=== PATIENT | male | born 1980 | race African-American/Black ===

== ENCOUNTER 2017-07-17 22:14 | Inpatient (IN) | payer OTHER ==
[2017-07-17 23:00] VITALS: BMI 29.0
--- NOTE | 2017-07-17 23:27 | HP ---
CIWA Score - CIWA Score Nausea/Vomitin-No Nausea/No Vomiting Muscle Tremors: 1-None Visible, but [place] Anxiety: 4-Mod. Anxious/Guarded Agitation: 4-Moderately Restless Paroxysmal Sweats: 1-Minimal Palms Moist Orientation: 1-Uncertain about Date Tacttile Disturbances: 0-None Auditory Disturbances: 0-None Visual Disturbances: 0-None Headache: 0-None Present CIWA-Ar Total Score: 11 Admission ROS BHS - HPI Chief Complaint: C/O WITHDRAWAL SX'S. SEEKING DETOX TXMENT Allergies/Adverse Reactions: Allergies Allergy/AdvReac Type Severity Reaction Status Date / Time No Known Allergies Allergy Verified 03/06/16 17:01 History of Present Illness: 36 Y.O. MALE WITH ALCOHOLISM ADMITTED FOR DETOX TXMENT. CLIENT STATES HE WAS REFERRED BY HIS ASSISTANT WRESTLING COACH. HE IS KNOWN TO [facility]. DENIES ANY SIGNIFICANT PERIOD OF CLEAN TIME. Exam Limitations: Intoxication - Ebola screening Have you traveled outside of the country in the last 21 days: No (N) Have you had contact with anyone from an Ebola affected area: No Have you been sick,other than usual withdrawal symptoms: No Do you have a fever: No - Review of Systems Constitutional: Chills, Night Sweats EENT: reports: Dental Problems Respiratory: reports: No Symptoms reported Cardiac: reports: No Symptoms Reported GI: reports: Poor Appetite, Poor Fluid Intake : reports: No Symptoms Reported Musculoskeletal: reports: No Symptoms Reported Integumentary: reports: No Symptoms Reported Neuro: reports: Seizure Endocrine: reports: No Symptoms Reported Hematology: reports: No Symptoms Reported Psychiatric: reports: Anxious, Depressed Other Systems: Reviewed and Negative Patient History - Patient Medical History Hx Anemia: No Hx Asthma: No Hx Chronic Obstructive Pulmonary Disease (COPD): No Hx Cancer: No Hx Cardiac Disorders: No Hx Congestive Heart Failure: No Hx Hypertension: No Hx Hypercholesterolemia: Yes (mild elevated, no med) Hx Pacemaker: No HX Cerebrovascular Accident: No Hx Seizures: Yes (Head injury related) Hx Dementia: No Hx Diabetes: No Hx Gastrointestinal Disorders: No Hx Liver Disease: No Hx Genitourinary Disorders: No Hx Sexually Transmitted Disorders: No Hx Renal Disease (ESRD): No Hx Thyroid Disease: No Hx Human Immunodeficiency Virus (HIV): No Hx Hepatitis C: No Hx Depression: No Hx Suicide Attempt: No Hx Bipolar Disorder: No Hx Schizophrenia: Yes Other Medical History: DENIES - Patient Surgical History Past Surgical History: No Hx Neurologic Surgery: No Hx Cataract Extraction: No Hx Cardiac Surgery: No Hx Lung Surgery: No Hx Breast Surgery: No Hx Breast Biopsy: No Hx Abdominal Surgery: No Hx Appendectomy: No Hx Cholecystectomy: No Hx Genitourinary Surgery: No Hx Orthopedic Surgery: No - PPD History Previous Implant?: Yes Documented Results: Negative w/proof Implanted On Prior [facility] Admission?: Yes Date: 03/08/16 PPD to be Administered?: Yes - Smoking Cessation Smoking history: Current every day smoker Have you smoked in the past 12 months: Yes Aproximately how many cigarettes per day: 5 Hx Chewing Tobacco Use: No Initiated information on smoking cessation: Yes 'Breaking Loose' booklet given: 07/17/17 - Substance & Tx. History Hx Alcohol Use: Yes Hx Substance Use: Yes Substance Use Type: Alcohol, Cocaine Hx Substance Use Treatment: Yes ([facility]) - Substances Abused VODKA. Route: Oral Frequency: Daily Amount used: 1 PINT Age of first use: 20 Date of Last Use: 07/17/17 Family Disease History - Family Disease History Family History: Denies Admission Physical Exam S - Vital Signs Vital Signs: Vital Signs - 24 hr 07/17/17 22:58 Temperature 98.1 F Pulse Rate 106 H Respiratory 20 Rate Blood Pressure 172/78 - Physical General Appearance: Yes: Appropriately Dressed, Moderate Distress, Intoxicated, Irritable HEENTM: Yes: EOMI, Normocephalic, Normal Voice, Pharynx Normal Respiratory: Yes: Chest Non-Tender, Lungs Clear, Normal Breath Sounds, No Respiratory Distress, No Accessory Muscle Use Neck: Yes: No masses,lesions,Nodules, Supple, Trachea in good position Breast: Yes: Breast Exam Deferred Cardiology: Yes: Regular Rhythm, Regular Rate, S1, S2 Abdominal: Yes: Normal Bowel Sounds, Non Tender, Soft Genitourinary: Yes: Within Normal Limits Back: Yes: Normal Inspection Musculoskeletal: Yes: Other (UNSTAEDY GAIT DUE TO INTOXICATION) Extremities: Yes: Normal Capillary Refill, Normal Range of Motion, Non-Tender Neurological: Yes: trucksmith II-XII NML intact, Alert, Motor Strength 5/5 Integumentary: Yes: Dry, Warm Lymphatic: Yes: Within Normal Limits - Diagnostic (1) Hyperlipidemia Current Visit: Yes Status: Chronic Qualifiers: Hyperlipidemia type: unspecified Qualified Code(s): E78.5 - Hyperlipidemia, unspecified (2) Nicotine dependence Current Visit: Yes Status: Chronic Qualifiers: Nicotine product type: cigarettes Substance use status: uncomplicated Qualified Code(s): F17.210 - Nicotine dependence, cigarettes, uncomplicated (3) Seizure after head injury Current Visit: Yes Status: Suspected (4) Alcohol dependence with uncomplicated withdrawal Current Visit: Yes Status: Chronic (5) Cocaine dependence, uncomplicated Current Visit: Yes Status: Chronic Cleared for Admission [facility] - Detox or Rehab [facility] Level of Care: Medically Managed Detox Regimen/Protocol: Librium [facility] Breath Alcohol Content Breath Alcohol Content: 0.063 Urine Drug Screen - Results Drug Screen Negative: No Urine Drug Screen Results: SUMMER-Cocaine
[2017-07-17] MEDS ORDERED: NICOTINE POLACRILEX 2 MG GUM BC PRN (23:34)
[2017-07-17] MEDS ORDERED: hydrOXYzine PAMOATE 50 MG CAPSULE (FP) PO PRN (23:34)
[2017-07-17] MEDS ORDERED: MAGNESIUM HYDROX 2400MG/30ML ORAL SUSPENSION 30 ML CUP PO PRN (23:34)
[2017-07-17] MEDS ORDERED: MENTHOL/PHENOL 1 EACH UD MM PRN (23:34)
[2017-07-17] MEDS ORDERED: MAG HYDROX/AL HYDROX/SIMETH 30 ML UNIT-DOSE CUP PO PRN (23:34)
[2017-07-17] MEDS ORDERED: ACETAMINOPHEN 325 MG TABLET (FP) PO PRN (23:34)
[2017-07-17] MEDS ORDERED: MAGNESIUM CITRATE 300 ML BOTTLE PO PRN (23:34)
[2017-07-17] MEDS ORDERED: P-EPHED 60MG/TRIPROLIDI 2.5MG TABLET PO PRN (23:34)
[2017-07-17] MEDS ORDERED: guaiFENesin/D-METHORPHAN HB 10 ML UNIT-DOSE CUPS PO PRN (23:34)
[2017-07-17] MEDS ORDERED: IBUPROFEN 400 MG TABLET (FP) PO PRN (23:34)
[2017-07-17] MEDS ORDERED: LOPERAMIDE HCL 2 MG CAPSULE PO PRN (23:34)
[2017-07-17] MEDS ORDERED: diphenhydrAMINE HCL 50 MG CAPSULE PO PRN (23:34)
[2017-07-17] MEDS ORDERED: chlordiazePOXIDE HCL 25 MG CAPSULE PO PRN (23:34)
[2017-07-18] MEDS: chlordiazePOXIDE HCL 25 MG CAPSULE PO SCH ×5 (01:56→22:26)
[2017-07-18] MEDS: PRENATAL VITAMINS W/ FOLIC ACID TABLET (FP) PO SCH (10:34)
[2017-07-18] MEDS: NICOTINE 14 MG/24 HOURS TOPICAL PATCH TD SCH (10:38)
[2017-07-18 10:40] LABS: MCH 29.8 pg (25.7-33.7); MCHC 33.5 g/dl (32.0-35.9); MEAN CELL VOLUME 89.1 fl (80-96); MEAN PLT VOLUME 8.4 fl (7.5-11.1); PLATELET COUNT 231 K/MM3 (134-434); RDW 13.6 % (11.9-15.9); WHITE BLOOD COUNT 5.8 K/mm3 (4.0-10.0)
[2017-07-18 10:49] LABS: ALBUMIN 3.2 g/dl (3.4-5.0); ANION GAP 3 (8-16); BILIRUBIN,TOTAL 0.6 mg/dL (0.2-1.0); CALCIUM 8.5 mg/dL (8.5-10.1); CO2 31 mmol/L (21-32); GLUCOSE,RANDOM 85 mg/dL (74-106); SGOT/AST 37 U/L (15-37); SGPT/ALT 32 U/L (12-78); TOT PROT 6.3 g/dl (6.4-8.2)
[2017-07-18 10:50] LABS: ALK PHOS 71 U/L (45-117)
--- NOTE | 2017-07-18 15:52 | PN ---
[facility] CIWA - CIWA Score Nausea/Vomitin Muscle Tremors: None Anxiety: 4-Mod. Anxious/Guarded Agitation: 4-Moderately Restless Paroxysmal Sweats: 3 Orientation: 0-Oriented Tacttile Disturbances: 3-Moderate Itch/Numb/Burn Auditory Disturbances: 0-None Visual Disturbances: 0-None Headache: 0-None Present CIWA-Ar Total Score: 16 BHS Progress Note (SOAP) Subjective: Fatigue, Stomach Cramping, Sweating, Body Aches. Objective: PT. A & O X 3, OBSERVED AMBULATING ON UNIT. NO ACUTE DISTRESS. PT. DENIES CHEST PAIN. 07/18/17 15:50 Vital Signs Temperature 98.0 F 07/18/17 10:39 Pulse Rate 70 07/18/17 10:39 Respiratory Rate 16 07/18/17 10:39 Blood Pressure 131/81 07/18/17 10:39 O2 Sat by Pulse Oximetry (%) Laboratory Tests 07/18/17 07/18/17 07/18/17 08:00 08:00 08:00 WBC 5.8 RBC 4.97 Hgb 14.8 Hct 44.3 MCV 89.1 MCH 29.8 MCHC 33.5 RDW 13.6 Plt Count 231 MPV 8.4 Sodium 138 Potassium 4.0 Chloride 104 Carbon Dioxide 31 D Anion Gap 3 L BUN 7 D Creatinine 1.0 Creat Clearance w eGFR > 60 Random Glucose 85 D Calcium 8.5 Total Bilirubin 0.6 D AST 37 D ALT 32 Alkaline Phosphatase 71 Total Protein 6.3 L Albumin 3.2 L RPR Titer Nonreactive LABS NOTED. UA RESULTS PENDING. 07/18/17 15:51 07/18/17 15:51 Assessment: 07/18/17 15:51 WITHDRAWAL SYMPTOMS. Plan: CONTINUE DETOX.
[2017-07-18] MEDS: THIAMINE HCL 100 MG TABLET (FP) PO SCH (22:26)
[2017-07-18] MEDS: AMMONIUM LACTATE 12% LOTION 225 GM BOTTLE TP SCH (22:27)
[2017-07-18 22:55] LABS: URINE APPEARANCE CLEAR; URINE BILIRUBIN NEGATIVE (NEGATIVE); URINE BLOOD NEGATIVE (NEGATIVE); URINE COLOR YELLOW; URINE GLUCOSE (UA) NEGATIVE (NEGATIVE); URINE KETONE NEGATIVE (NEGATIVE); URINE LEUK ESTERASE NEGATIVE (NEGATIVE); URINE NITRITE NEGATIVE (NEGATIVE); URINE PROTEIN NEGATIVE (NEGATIVE); URINE UROBILINOGEN NEGATIVE mg/dL (0.2-1.0)
[2017-07-19] MEDS: chlordiazePOXIDE HCL 25 MG CAPSULE PO SCH ×3 (06:06→17:30)
--- NOTE | 2017-07-19 08:23 | CONSULT ---
[facility] Psychiatric Consult - Data Date of interview: 07/19/17 Admission source: Self-referred Identifying data: Mr Loera is a 36 years old single Black, unemployed with no source of income, homeless seeking detox treatment for alcohol Medical History: Patient denies having medical issues. However on record he reported history of Hyperlipidemia, Lyme Arthritis and Seizure Disorder due to head injury. When confronted with that information, he claims it was not him Psychiatric History: Patient denies history of previous psychiatric treatmen. However, during an admission to inpt rehab in this facility in March 2016, he reported history of Schizoaffective Disorder diagnosed approximately 10 years ago and has had approximately 5 previous psychiatric hospitalizations. Most recently was in November 2015 at [facility] . He said that he was in half-way and was seeing a psychiatrist there and was prescribed Abilify 10 mg po daily, Elavil 25 mg po HS and Remeron 30 mg po HS. Reported that he was released from half-way 10 days ago prior to that admission in March 2016 and was given scripts for 30 day supply of theses medications. At the time he reported hearing voices but claimed that they were under controlled since he was on medication. During that admission, he was prescribed Abilify 10 mg po daily, remeron 30 mg po HS and Cogentin 1 mg po BID. He was admitted on 03/06/16 and left AMA on 03/11/16 after he was confronted for smoking on the unit Physical/Sexual Abuse/Trauma History: Denies history of physical, sexual abuse aswell as well as DV relationship Additional Comment: Denies history of previous arrest. However he reported history of multiple arrests including 2 felony convictions on March 2016 and said that he was on parole till 2018 Mental Status Exam - Mental Status Exam Alert and Oriented to: Time, Place, Person Cognitive Function: Fair Patient Appearance: Well Groomed Mood: Hopeful, Euthymic Affect: Appropriate Patient Behavior: Uncooperative Speech Pattern: Clear Voice Loudness: Normal Thought Process: Intact, Goal Oriented Thought Disorder: Not Present Hallucinations: Denies Suicidal Ideation: Denies Insight/Judgement: Poor Sleep: Fair Appetite: Good Muscle strength/Tone: Normal Gait/Station: Normal Psychiatric Findings - Problem List ([place] 1, 2,3) (1) Schizoaffective disorder Current Visit: No Status: Acute (2) Alcohol dependence with uncomplicated withdrawal Current Visit: Yes Status: Chronic (3) Nicotine dependence Current Visit: Yes Status: Chronic Qualifiers: Nicotine product type: cigarettes Substance use status: uncomplicated Qualified Code(s): F17.210 - Nicotine dependence, cigarettes, uncomplicated (4) Seizure after head injury Current Visit: Yes Status: Suspected (5) Lyme arthritis Current Visit: No Status: Chronic - Initial Treatment Plan Initial Treatment Plan: Continue inpatient detoxification while monitoring for signs or evidence of psychiatric decompensation
[2017-07-19] MEDS: PRENATAL VITAMINS W/ FOLIC ACID TABLET (FP) PO SCH (10:12)
[2017-07-19] MEDS: AMMONIUM LACTATE 12% LOTION 225 GM BOTTLE TP SCH ×2 (10:13→22:45)
[2017-07-19] MEDS: NICOTINE 14 MG/24 HOURS TOPICAL PATCH TD SCH (10:13)
[2017-07-19] MEDS: GABAPENTIN 100 MG CAPSULE (FP) PO SCH ×2 (15:10→22:11)
--- NOTE | 2017-07-19 17:58 | PN ---
S CIWA - CIWA Score Nausea/Vomitin Muscle Tremors: 4-Moderate,w/Arms Extend Anxiety: 4-Mod. Anxious/Guarded Agitation: 3 Paroxysmal Sweats: 3 Orientation: 0-Oriented Tacttile Disturbances: 0-None Auditory Disturbances: 0-None Visual Disturbances: 0-None Headache: 0-None Present CIWA-Ar Total Score: 17 BHS Progress Note (SOAP) Subjective: Body aches, tremor, chills, interrupted sleep Objective: 07/19/17 17:57 Last Vital Signs Temp Pulse Resp BP Pulse Ox 97.1 F L 63 20 131/71 07/19/17 13:46 07/19/17 13:46 07/19/17 13:46 07/19/17 13:46 Laboratory Tests 07/18/17 07/18/17 07/18/17 08:00 08:00 08:00 WBC 5.8 RBC 4.97 Hgb 14.8 Hct 44.3 MCV 89.1 MCH 29.8 MCHC 33.5 RDW 13.6 Plt Count 231 MPV 8.4 Sodium 138 Potassium 4.0 Chloride 104 Carbon Dioxide 31 D Anion Gap 3 L BUN 7 D Creatinine 1.0 Creat Clearance w eGFR > 60 Random Glucose 85 D Calcium 8.5 Total Bilirubin 0.6 D AST 37 D ALT 32 Alkaline Phosphatase 71 Total Protein 6.3 L Albumin 3.2 L Urine Color Urine Appearance Urine pH Ur Specific [place] Urine Protein Urine Glucose (UA) Urine Ketones Urine Blood Urine Nitrite Urine Bilirubin Urine Urobilinogen RPR Titer Nonreactive 07/18/17 22:45 WBC RBC Hgb Hct MCV MCH MCHC RDW Plt Count MPV Sodium Potassium Chloride Carbon Dioxide Anion Gap BUN Creatinine Creat Clearance w eGFR Random Glucose Calcium Total Bilirubin AST ALT Alkaline Phosphatase Total Protein Albumin Urine Color Yellow Urine Appearance Clear Urine pH 5.0 D Ur Specific [place] 1.025 Urine Protein Negative Urine Glucose (UA) Negative Urine Ketones Negative Urine Blood Negative Urine Nitrite Negative Urine Bilirubin Negative Urine Urobilinogen Negative RPR Titer Labs noted Assessment: 07/19/17 17:58 Withdrawal symptoms Plan: Continue detox
[2017-07-19] MEDS: THIAMINE HCL 100 MG TABLET (FP) PO SCH (22:10)
[2017-07-19] MEDS: chlordiazePOXIDE 5 MG CAPSULE PO SCH (22:11)
[2017-07-19] MEDS: NAPROXEN 500 MG TABLET (FP) PO SCH (22:11)
[2017-07-20] MEDS: chlordiazePOXIDE 5 MG CAPSULE PO SCH ×3 (07:00→17:25)
[2017-07-20] MEDS: GABAPENTIN 100 MG CAPSULE (FP) PO SCH ×3 (07:00→22:01)
[2017-07-20] MEDS ORDERED: PHENYTOIN NA EXTENDED 100 MG CAPSULE (FP) PO ONE (09:15)
[2017-07-20] MEDS: PRENATAL VITAMINS W/ FOLIC ACID TABLET (FP) PO SCH (10:05)
[2017-07-20] MEDS: NAPROXEN 500 MG TABLET (FP) PO SCH ×2 (10:06→22:01)
[2017-07-20] MEDS: NICOTINE 14 MG/24 HOURS TOPICAL PATCH TD SCH (10:06)
[2017-07-20] MEDS: AMMONIUM LACTATE 12% LOTION 225 GM BOTTLE TP SCH ×2 (10:06→22:03)
--- NOTE | 2017-07-20 12:21 | PN ---
[facility] Progress Note (SOAP) Subjective: Pt. does not remember the names of his recent meds. List from Outside pharmacy reveals that pt. was recently prescribed suboxone & remeron Objective: 07/20/17 12:21 Vital Signs - 8 hr 07/20/17 07/20/17 07/20/17 06:07 07:00 09:38 Temperature 97.4 F L 96.7 F L Pulse Rate 50 L 60 Respiratory 18 18 18 Rate Blood Pressure 109/64 127/82 Laboratory Tests 07/18/17 07/18/17 07/18/17 08:00 08:00 08:00 WBC 5.8 RBC 4.97 Hgb 14.8 Hct 44.3 MCV 89.1 MCH 29.8 MCHC 33.5 RDW 13.6 Plt Count 231 MPV 8.4 Sodium 138 Potassium 4.0 Chloride 104 Carbon Dioxide 31 D Anion Gap 3 L BUN 7 D Creatinine 1.0 Creat Clearance w eGFR > 60 Random Glucose 85 D Calcium 8.5 Total Bilirubin 0.6 D AST 37 D ALT 32 Alkaline Phosphatase 71 Total Protein 6.3 L Albumin 3.2 L Urine Color Urine Appearance Urine pH Ur Specific [place] Urine Protein Urine Glucose (UA) Urine Ketones Urine Blood Urine Nitrite Urine Bilirubin Urine Urobilinogen RPR Titer Nonreactive 07/18/17 22:45 WBC RBC Hgb Hct MCV MCH MCHC RDW Plt Count MPV Sodium Potassium Chloride Carbon Dioxide Anion Gap BUN Creatinine Creat Clearance w eGFR Random Glucose Calcium Total Bilirubin AST ALT Alkaline Phosphatase Total Protein Albumin Urine Color Yellow Urine Appearance Clear Urine pH 5.0 D Ur Specific [place] 1.025 Urine Protein Negative Urine Glucose (UA) Negative Urine Ketones Negative Urine Blood Negative Urine Nitrite Negative Urine Bilirubin Negative Urine Urobilinogen Negative RPR Titer labs noted Assessment: 07/20/17 12:22 Withdrawal sx. Plan: Continue detox
[2017-07-20] MEDS: BUPRENORPHINE/NALOXONE 8 MG/2 MG FILM PACKET SL SCH ×2 (13:57→22:03)
[2017-07-20] MEDS: PHENYTOIN NA EXTENDED 100 MG CAPSULE (FP) PO SCH ×2 (13:57→22:02)
--- NOTE | 2017-07-20 17:02 | EKG ---
Test Reason : Blood Pressure : / mmHG Vent. Rate : 076 BPM Atrial Rate : 076 BPM P-R Int : 170 ms QRS Dur : 120 ms QT Int : 416 ms P-R-T Axes : 060 078 048 degrees QTc Int : 468 ms NORMAL SINUS RHYTHM NON-SPECIFIC INTRA-VENTRICULAR CONDUCTION DELAY BORDERLINE ECG NO PREVIOUS ECGS AVAILABLE Confirmed by TRINO ANDRADE, LIYA ([id number]) on 07/20/2017 5:02:00 PM Referred By: Confirmed By:LIYA JAMESON MD
[2017-07-20] MEDS ORDERED: OLANZapine 10 MG TABLET PO SCH (22:00)
[2017-07-20] MEDS ORDERED: MIRTAZAPINE 15 MG TABLET (FP) PO SCH (22:00)
[2017-07-20] MEDS: THIAMINE HCL 100 MG TABLET (FP) PO SCH (22:03)
[2017-07-20] MEDS: chlordiazePOXIDE HCL 10 MG CAPSULE PO SCH (22:05)
[2017-07-21] MEDS: PHENYTOIN NA EXTENDED 100 MG CAPSULE (FP) PO SCH (06:15)
[2017-07-21] MEDS: chlordiazePOXIDE HCL 10 MG CAPSULE PO SCH ×2 (06:15→11:02)
[2017-07-21] MEDS: GABAPENTIN 100 MG CAPSULE (FP) PO SCH (06:15)
[2017-07-21 09:25] VITALS: BP 135/82; PULSE 69; TEMP 96.8
[2017-07-21] MEDS: BUPRENORPHINE/NALOXONE 8 MG/2 MG FILM PACKET SL SCH (09:26)
[2017-07-21] MEDS: NAPROXEN 500 MG TABLET (FP) PO SCH (09:26)
[2017-07-21] MEDS: PRENATAL VITAMINS W/ FOLIC ACID TABLET (FP) PO SCH (09:26)
--- NOTE | 2017-07-21 09:37 | DS ---
[facility] Detox Discharge Summary Admission Date: 07/17/17 Discharge Date: 07/21/17 - History Present History: Alcohol Dependence, Cocaine Dependence Additional Comments: DETOX COMPLETED. ULISES Alexandre X 3. NAD. PT REMINDED TO FOLLOW UP WITH HER PMD, DR. BRADLEY SINGLETARY FOR MEDICAL MANAGEMENT. Pertinent Past History: HX HYPERLIPIDEMIA HX LYME ARTHRITIS - Physical Exam Results Vital Signs: Vital Signs Temperature 96.8 F L 07/21/17 09:24 Pulse Rate 69 07/21/17 09:24 Respiratory Rate 18 07/21/17 09:24 Blood Pressure 135/82 07/21/17 09:24 O2 Sat by Pulse Oximetry (%) Pertinent Admission Physical Exam Findings: WITHDRAWAL SX Laboratory Last Values WBC 5.8 K/mm3 (4.0-10.0) 07/18/17 08:00 RBC 4.97 M/mm3 (4.00-5.60) 07/18/17 08:00 Hgb 14.8 GM/dL (11.7-16.9) 07/18/17 08:00 Hct 44.3 % (35.4-49) 07/18/17 08:00 MCV 89.1 fl (80-96) 07/18/17 08:00 MCH 29.8 pg (25.7-33.7) 07/18/17 08:00 MCHC 33.5 g/dl (32.0-35.9) 07/18/17 08:00 RDW 13.6 % (11.9-15.9) 07/18/17 08:00 Plt Count 231 K/MM3 (134-434) 07/18/17 08:00 MPV 8.4 fl (7.5-11.1) 07/18/17 08:00 Sodium 138 mmol/L (136-145) 07/18/17 08:00 Potassium 4.0 mmol/L (3.5-5.1) 07/18/17 08:00 Chloride 104 mmol/L (98-107) 07/18/17 08:00 Carbon Dioxide 31 mmol/L (21-32) D 07/18/17 08:00 Anion Gap 3 (8-16) L 07/18/17 08:00 BUN 7 mg/dL (7-18) D 07/18/17 08:00 Creatinine 1.0 mg/dL (0.7-1.3) 07/18/17 08:00 Creat Clearance w eGFR > 60 (>60) 07/18/17 08:00 Random Glucose 85 mg/dL (74-106) D 07/18/17 08:00 Calcium 8.5 mg/dL (8.5-10.1) 07/18/17 08:00 Total Bilirubin 0.6 mg/dL (0.2-1.0) D 07/18/17 08:00 AST 37 U/L (15-37) D 07/18/17 08:00 ALT 32 U/L (12-78) 07/18/17 08:00 Alkaline Phosphatase 71 U/L (45-117) 07/18/17 08:00 Total Protein 6.3 g/dl (6.4-8.2) L 07/18/17 08:00 Albumin 3.2 g/dl (3.4-5.0) L 07/18/17 08:00 Urine Color Yellow 07/18/17 22:45 Urine Appearance Clear 07/18/17 22:45 Urine pH 5.0 (5.0-8.0) D 07/18/17 22:45 Ur Specific [place] 1.025 (1.005-1.025) 07/18/17 22:45 Urine Protein Negative (NEGATIVE) 07/18/17 22:45 Urine Glucose (UA) Negative (NEGATIVE) 07/18/17 22:45 Urine Ketones Negative (NEGATIVE) 07/18/17 22:45 Urine Blood Negative (NEGATIVE) 07/18/17 22:45 Urine Nitrite Negative (NEGATIVE) 07/18/17 22:45 Urine Bilirubin Negative (NEGATIVE) 07/18/17 22:45 Urine Urobilinogen Negative mg/dL (0.2-1.0) 07/18/17 22:45 RPR Titer Nonreactive (NONREACTIVE) 07/18/17 08:00 - Treatment Hospital Course: Detox Protocol Followed, Detoxed Safely, Responded well, Discharged Condition Good, Rehab Referral Accepted Patient has Accepted a Rehab Referral to: [facility] - Medication Discharge Medications: Ambulatory Orders Aripiprazole [Abilify -] 10 mg PO DAILY 03/06/16 Mirtazapine [Remeron -] 45 mg PO HS 03/06/16 Naproxen [Naprosyn -] 500 mg PO BID PRN 03/06/16 Phenytoin Na Extended [Dilantin -] 100 mg PO TID 03/06/16 Olanzapine [Zyprexa -] 10 mg PO HS 07/18/17 Buprenorphine/Naloxone [Suboxone 8Mg/2Mg Sl Film -] 1 each SL DAILY 07/20/17 - Diagnosis (1) Alcohol dependence with uncomplicated withdrawal Current Visit: Yes Status: Acute (2) Cocaine dependence, uncomplicated Current Visit: Yes Status: Acute (3) Hyperlipidemia Current Visit: Yes Status: Suspected Qualifiers: Hyperlipidemia type: unspecified Qualified Code(s): E78.5 - Hyperlipidemia, unspecified (4) Nicotine dependence Current Visit: Yes Status: Acute Qualifiers: Nicotine product type: cigarettes Substance use status: in withdrawal Qualified Code(s): F17.213 - Nicotine dependence, cigarettes, with withdrawal (5) Seizure after head injury Current Visit: Yes Status: Suspected (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 (7) Opioid dependence on agonist therapy Current Visit: Yes Status: Chronic - AMA Did Patient Leave Against Medical Advice: No
[2017-07-21] MEDS: AMMONIUM LACTATE 12% LOTION 225 GM BOTTLE TP SCH (11:02)
[2017-07-21] MEDS: NICOTINE 14 MG/24 HOURS TOPICAL PATCH TD SCH (11:02)
== END 2017-07-21 13:51 | disposition other institution (70) | DRG 773 ==
LOC: YASAS 22:14 → Y3N 23:28
PROVIDERS: ADMIT Internal Medicine; ATTEND Internal Medicine
PROC: HZ2ZZZZ Detoxification Services for Substance Abuse Treatment (ICD-10-PCS; principal; 2017-07-17)
DX: F11.20 Opioid dependence, uncomplicated (principal); F10.230 Alcohol dependence with withdrawal, uncomplicated; F14.20 Cocaine dependence, uncomplicated; F17.213 Nicotine dependence, cigarettes, with withdrawal; F25.9 Schizoaffective disorder, unspecified; E78.00 Pure hypercholesterolemia, unspecified; R56.1 Post traumatic seizures; A69.23 Arthritis due to Lyme disease
CPT/HCPCS: 36415; 80053; 81003; 85027; 86593; 93005; 93010

== ENCOUNTER 2017-07-21 13:05 | Inpatient (IN) | payer OTHER ==
[2017-07-21] MEDS ORDERED: NICOTINE POLACRILEX 2 MG GUM BUC PRN (14:26)
[2017-07-21] MEDS ORDERED: P-EPHED 60MG/TRIPROLIDI 2.5MG TABLET PO PRN (14:26)
[2017-07-21] MEDS ORDERED: LOPERAMIDE HCL 2 MG CAPSULE PO PRN (14:26)
[2017-07-21] MEDS ORDERED: MENTHOL/PHENOL 1 EACH UD MM PRN (14:26)
[2017-07-21] MEDS ORDERED: ACETAMINOPHEN 325 MG TABLET (FP) PO PRN (14:26)
[2017-07-21] MEDS ORDERED: MAGNESIUM CITRATE 300 ML BOTTLE PO PRN (14:26)
[2017-07-21] MEDS ORDERED: MAGNESIUM HYDROX 2400MG/30ML ORAL SUSPENSION 30 ML CUP PO PRN (14:26)
[2017-07-21] MEDS ORDERED: guaiFENesin/D-METHORPHAN HB 10 ML UNIT-DOSE CUPS PO PRN (14:26)
[2017-07-21] MEDS ORDERED: MAG HYDROX/AL HYDROX/SIMETH 30 ML UNIT-DOSE CUP PO PRN (14:26)
[2017-07-21] MEDS ORDERED: PHENYTOIN NA EXTENDED 100 MG CAPSULE (FP) PO ONE (14:29)
--- NOTE | 2017-07-21 14:34 | HP ---
BRENDEN ANDRADE Rehab Assess/Revision - Admission History Admitted to Rehab from: [facility] Date of Admission to Rehab: 07/21/17 - Findings Detox History & Physical reviewed: Yes Concur with findings: Yes Comments/Additional Findings: ADMIT TO REHAB FOR AFTER CARE Inpatient Rehab Admission - Initial Determination Are CD services needed?: Yes Free of communicable disease: Yes Not in need of hospitalization: No - Rehab Admission Criteria Previous failed treatment: Yes Poor recovery environment: Yes Comorbidities: Yes Lacks judgement: Yes Patient is meeting Inpatient Rehab admission criteria:: Yes
[2017-07-21] MEDS: NICOTINE 14 MG/24 HOURS TOPICAL PATCH TD SCH (14:49)
[2017-07-21] MEDS: OLANZapine 10 MG TABLET PO SCH (21:29)
[2017-07-21] MEDS: THIAMINE HCL 100 MG TABLET (FP) PO SCH (21:30)
[2017-07-21] MEDS: BUPRENORPHINE/NALOXONE 8 MG/2 MG FILM PACKET SL SCH (21:30)
[2017-07-21] MEDS: PHENYTOIN NA EXTENDED 100 MG CAPSULE (FP) PO SCH (21:30)
[2017-07-21] MEDS: MIRTAZAPINE 15 MG TABLET (FP) PO SCH (21:30)
[2017-07-22] MEDS: PHENYTOIN NA EXTENDED 100 MG CAPSULE (FP) PO SCH ×3 (06:48→21:38)
[2017-07-22] MEDS: PRENATAL VITAMINS W/ FOLIC ACID TABLET (FP) PO SCH (10:21)
[2017-07-22] MEDS: BUPRENORPHINE/NALOXONE 8 MG/2 MG FILM PACKET SL SCH ×2 (10:22→21:38)
[2017-07-22] MEDS: NICOTINE 14 MG/24 HOURS TOPICAL PATCH TD SCH (10:22)
--- NOTE | 2017-07-22 11:30 | HP ---
Psychiatrist Admission - Data Date of interview: 07/22/17 Admission source: 3N Identifying data: THis is the second inpatient rehabilitation admission for thsi 36 year old single AA male,no children, unemployed and supported by [facility]. Medical History: Hyperlipidemia, Lyme Arthritis and Seizure Disorder due to head injury. Psychiatric History: Patient is poor historian, he admits was diagnosed as Schizoaffective disorder, diagnosed approximately 10 years ago and has had several 6 previous psychiatric hospitalizations with most recent in 2016 at [facility], reports sees the psychiatrist in one of the [facility] and currently on Zyprexa and Remeron. Physical/Sexual Abuse/Trauma History: Denies Vital Signs: Vital Signs - 24 hr 07/21/17 07/22/17 07/22/17 14:40 00:35 03:28 Temperature Pulse Rate 66 Respiratory 18 18 18 Rate Blood Pressure 145/73 07/22/17 06:46 Temperature 97.7 F Pulse Rate 57 L Respiratory 18 Rate Blood Pressure 152/81 Allergies/Adverse Reactions: Allergies Allergy/AdvReac Type Severity Reaction Status Date / Time No Known Allergies Allergy Verified 07/21/17 14:44 Date of last physical exam: 07/17/17 Concur with the findings of this exam: Yes - Substance Abuse/Tx History Hx Alcohol Use: Yes Hx Substance Use: Yes Substance Use Type: Cocaine Hx Substance Use Treatment: Yes - Admission Criteria Previous failed treatment: Yes Poor recovery environment: Yes Comorbidities: Yes Lacks judgement: Yes Mental Status Exam - Mental Status Exam Alert and Oriented to: Place, Person Cognitive Function: Impaired Patient Appearance: Well Groomed Mood: Angry, Irritable Affect: Appropriate Patient Behavior: Appropriate, Cooperative Voice Loudness: Normal Thought Process: Goal Oriented Thought Disorder: Not Present Hallucinations: Denies Suicidal Ideation: Denies Homicidal Ideation: Denies Insight/Judgement: Fair Sleep: Fair Appetite: Fair Muscle strength/Tone: Normal Gait/Station: Normal Psychiatric Findings - Problem List ([place] 1, 2,3) (1) Alcohol dependence Current Visit: No Status: Acute (2) Nicotine dependence Current Visit: No Status: Acute Qualifiers: Nicotine product type: cigarettes Substance use status: in withdrawal Qualified Code(s): F17.213 - Nicotine dependence, cigarettes, with withdrawal (3) Schizoaffective disorder Current Visit: No Status: Acute (4) Cocaine dependence Current Visit: No Status: Chronic Qualifiers: Substance use status: uncomplicated Qualified Code(s): F14.20 - Cocaine dependence, uncomplicated - Initial Treatment Plan Initial Treatment Plan: will continue his meidcations, monitor progres as needed
[2017-07-22] MEDS: THIAMINE HCL 100 MG TABLET (FP) PO SCH (21:38)
[2017-07-22] MEDS: MIRTAZAPINE 15 MG TABLET (FP) PO SCH (21:38)
[2017-07-22] MEDS: OLANZapine 10 MG TABLET PO SCH (21:38)
[2017-07-23] MEDS: BUPRENORPHINE/NALOXONE 8 MG/2 MG FILM PACKET SL SCH ×2 (10:30→21:34)
[2017-07-23] MEDS: NICOTINE 14 MG/24 HOURS TOPICAL PATCH TD SCH (10:30)
[2017-07-23] MEDS: PRENATAL VITAMINS W/ FOLIC ACID TABLET (FP) PO SCH (10:30)
[2017-07-23] MEDS: PHENYTOIN NA EXTENDED 100 MG CAPSULE (FP) PO SCH ×4 (10:31→21:33)
[2017-07-23] MEDS: THIAMINE HCL 100 MG TABLET (FP) PO SCH (21:33)
[2017-07-23] MEDS: MIRTAZAPINE 15 MG TABLET (FP) PO SCH (21:33)
[2017-07-23] MEDS: OLANZapine 10 MG TABLET PO SCH (21:33)
[2017-07-24] MEDS: PHENYTOIN NA EXTENDED 100 MG CAPSULE (FP) PO SCH ×3 (10:00→21:31)
[2017-07-24] MEDS: NICOTINE 14 MG/24 HOURS TOPICAL PATCH TD SCH (10:21)
[2017-07-24] MEDS: PRENATAL VITAMINS W/ FOLIC ACID TABLET (FP) PO SCH (10:21)
[2017-07-24] MEDS: BUPRENORPHINE/NALOXONE 8 MG/2 MG FILM PACKET SL SCH ×2 (10:21→21:32)
[2017-07-24] MEDS ORDERED: PHENYTOIN NA EXTENDED 100 MG CAPSULE (FP) PO ONE (14:18)
[2017-07-24] MEDS: THIAMINE HCL 100 MG TABLET (FP) PO SCH (21:31)
[2017-07-24] MEDS: MIRTAZAPINE 15 MG TABLET (FP) PO SCH (21:31)
[2017-07-24] MEDS: OLANZapine 10 MG TABLET PO SCH (21:31)
[2017-07-24] MEDS: IBUPROFEN 400 MG TABLET (FP) PO PRN (23:37)
[2017-07-25] MEDS: PHENYTOIN NA EXTENDED 100 MG CAPSULE (FP) PO SCH ×3 (06:09→21:35)
[2017-07-25] MEDS: PRENATAL VITAMINS W/ FOLIC ACID TABLET (FP) PO SCH (10:30)
[2017-07-25] MEDS: BUPRENORPHINE/NALOXONE 8 MG/2 MG FILM PACKET SL SCH ×2 (10:32→21:36)
[2017-07-25] MEDS: NICOTINE 14 MG/24 HOURS TOPICAL PATCH TD SCH (14:46)
[2017-07-25] MEDS: AMMONIUM LACTATE 12% LOTION 225 GM BOTTLE TP PRN ×2 (14:47→21:37)
[2017-07-25] MEDS: OLANZapine 10 MG TABLET PO SCH (21:35)
[2017-07-25] MEDS: MIRTAZAPINE 15 MG TABLET (FP) PO SCH (21:35)
[2017-07-25] MEDS: THIAMINE HCL 100 MG TABLET (FP) PO SCH (21:36)
[2017-07-26] MEDS: PHENYTOIN NA EXTENDED 100 MG CAPSULE (FP) PO SCH ×3 (07:47→21:28)
[2017-07-26] MEDS: NICOTINE 14 MG/24 HOURS TOPICAL PATCH TD SCH (10:05)
[2017-07-26] MEDS: PRENATAL VITAMINS W/ FOLIC ACID TABLET (FP) PO SCH (10:06)
[2017-07-26] MEDS: BUPRENORPHINE/NALOXONE 8 MG/2 MG FILM PACKET SL SCH ×2 (10:06→21:29)
[2017-07-26] MEDS: THIAMINE HCL 100 MG TABLET (FP) PO SCH (21:28)
[2017-07-26] MEDS: diphenhydrAMINE HCL 50 MG CAPSULE PO PRN (21:28)
[2017-07-26] MEDS: MIRTAZAPINE 15 MG TABLET (FP) PO SCH (21:28)
[2017-07-26] MEDS: OLANZapine 10 MG TABLET PO SCH (21:28)
[2017-07-26] MEDS: AMMONIUM LACTATE 12% LOTION 225 GM BOTTLE TP PRN (21:29)
[2017-07-27] MEDS: PHENYTOIN NA EXTENDED 100 MG CAPSULE (FP) PO SCH ×3 (07:02→21:15)
[2017-07-27] MEDS: PRENATAL VITAMINS W/ FOLIC ACID TABLET (FP) PO SCH (10:46)
[2017-07-27] MEDS: BUPRENORPHINE/NALOXONE 8 MG/2 MG FILM PACKET SL SCH ×2 (10:47→21:16)
[2017-07-27] MEDS: NICOTINE 14 MG/24 HOURS TOPICAL PATCH TD SCH (10:47)
[2017-07-27] MEDS: MIRTAZAPINE 15 MG TABLET (FP) PO SCH (21:15)
[2017-07-27] MEDS: OLANZapine 10 MG TABLET PO SCH (21:15)
[2017-07-27] MEDS: THIAMINE HCL 100 MG TABLET (FP) PO SCH (21:16)
[2017-07-28] MEDS: PHENYTOIN NA EXTENDED 100 MG CAPSULE (FP) PO SCH ×3 (06:38→21:49)
[2017-07-28] MEDS: BUPRENORPHINE/NALOXONE 8 MG/2 MG FILM PACKET SL SCH ×2 (10:14→21:49)
[2017-07-28] MEDS: NICOTINE 14 MG/24 HOURS TOPICAL PATCH TD SCH (10:14)
[2017-07-28] MEDS: PRENATAL VITAMINS W/ FOLIC ACID TABLET (FP) PO SCH (10:14)
[2017-07-28] MEDS: THIAMINE HCL 100 MG TABLET (FP) PO SCH (21:48)
[2017-07-28] MEDS: MIRTAZAPINE 15 MG TABLET (FP) PO SCH (21:49)
[2017-07-28] MEDS: OLANZapine 10 MG TABLET PO SCH (21:49)
[2017-07-29] MEDS: PHENYTOIN NA EXTENDED 100 MG CAPSULE (FP) PO SCH ×3 (06:45→21:37)
[2017-07-29] MEDS: PRENATAL VITAMINS W/ FOLIC ACID TABLET (FP) PO SCH (09:56)
[2017-07-29] MEDS: NICOTINE 14 MG/24 HOURS TOPICAL PATCH TD SCH (09:56)
[2017-07-29] MEDS: BUPRENORPHINE/NALOXONE 8 MG/2 MG FILM PACKET SL SCH ×2 (09:57→21:41)
--- NOTE | 2017-07-29 10:31 | PN ---
Psychiatric Progress Note Vital Signs: Vital Signs Period Temp Pulse Resp BP Sys/Stephens Pulse Ox Last 24 Hr 96.9 F 67 16-20 140/75 Date of Session: 07/29/17 Chief Complaint:: progress update. HPI: Patient is addressing alcohol, nicotine, cocaine dependence comorbid Schizoaffective disorder. ROS: WNL Current Medications: Active Medications Generic Name Dose Route Start Last Admin Trade Name Freq PRN Reason Stop Dose Admin Acetaminophen 650 mg 07/21/17 14:26 Tylenol - PO Q4H PRN FEVER OR PAIN Al Hydroxide/Mg Hydroxide 30 ml 07/21/17 14:26 Mylanta Oral Suspension - PO Q6H PRN DYSPEPSIA Buprenorphine/Naloxone 1 each 07/29/17 10:00 07/29/17 09:57 Suboxone 8mg/2mg Sl Film - SL 08/05/17 09:59 1 each BID CHELSEA Administration Diphenhydramine HCl 50 mg 07/21/17 14:26 07/26/17 21:28 Benadryl - PO 50 mg HSMR1 PRN Administration FOR ITCHING Eucalyptus/Menthol/Phenol/Sorbitol 1 each 07/21/17 14:26 Cepastat Lozenge - MM Q4H PRN SORE THROAT Guaifenesin 10 ml 07/21/17 14:26 Robitussin Dm - PO Q6H PRN COUGH Ibuprofen 400 mg 07/21/17 14:26 07/24/17 23:37 Motrin - PO 400 mg Q6H PRN Administration PAIN Lactic Acid 1 applic 07/24/17 14:19 07/26/17 21:29 Lac-Hydrin 12 TP 1 applic BID PRN Administration DRY SKIN Loperamide HCl 4 mg 07/21/17 14:26 Imodium - PO Q6H PRN DIARRHEA Magnesium Hydroxide 30 ml 07/21/17 14:26 Milk Of Magnesia - PO DAILY PRN CONSTIPATION Mirtazapine 45 mg 07/21/17 22:00 07/28/17 21:49 Remeron - PO 45 mg HS CHELSEA Administration Nicotine 14 mg 07/21/17 14:30 07/29/17 09:56 Nicoderm Patch - TD 14 mg DAILY CHELSEA Administration Nicotine Polacrilex 2 mg 07/21/17 14:26 Nicorette Gum - BUC Q2H PRN NICOTINE REPLACEMENT RX Olanzapine 10 mg 07/21/17 22:00 07/28/17 21:49 Zyprexa - PO 10 mg HS CHELSEA Administration Phenytoin Sodium 100 mg 07/23/17 15:00 07/29/17 06:45 Dilantin - PO 100 mg TID CHELSEA Administration Multivit/Folic Acid/Iron 1 tab 07/22/17 10:00 07/29/17 09:56 Vitamins (Sjr) - PO 1 tab DAILY CHELSEA Administration Pseudoephedrine/Triprolidine 1 combo 07/21/17 14:26 Actifed - PO TID PRN NASAL CONGESTION Thiamine HCl 100 mg 07/21/17 22:00 07/28/17 21:48 Vitamin B1 - PO 100 mg HS CHELSEA Administration Medication(s) Change(s): increase Zyprexa 15 mg po hs. Current Side Effect: No Lab tests ordered: No Lab tests reviewed: Yes Provider note:: Was asked by the staff to re-evaluate the patient due to the recent incident on the unit when patient was loud during breakfast time yelling that the milk is spoiled as other the patients tried to convince him that the milk was not spoiled because they were using it in their tea also was reported by the staff this morning was cofused asking where his room. Patient was seen today, he reports he just feels fatiqued in the mornings and some days needs a few minutes rest in his room, other than that he has no complaints. He is alert , cooperative and calm, he has a good eye contact and he is polite during evaluation. He reports that his sleeping habits just started to imrpove, he has no side-effects from medications, he is fully aware of his medications name and dosage. Discussed indications and properties of his current medications, recommended to add 5 mg of Zyprexa additionally to his 10 mg po at HS, patient agreed with careplan. Counseling and supportive therapy provided, patient is fully ambulatory and not in acute distress. Will continue to monitor rpogress. Total face to face time:: 35 Mental Status Exam - Mental Status Exam Alert and Oriented to: Time, Place, Person Cognitive Function: Grossly Intact Patient Appearance: Well Groomed Affect: Appropriate, Mood Congruent, Normal Range Patient Behavior: Appropriate, Cooperative Speech Pattern: Clear, Appropriate Voice Loudness: Normal Thought Process: Intact, Goal Oriented Thought Disorder: Not Present Hallucinations: Denies Suicidal Ideation: Denies Homicidal Ideation: Denies Insight/Judgement: Fair Sleep: Fair Appetite: Fair Muscle strength/Tone: Normal Gait/Station: Normal Psychiatric Treatment Plan - Problem List (1) Alcohol dependence Current Visit: No (2) Nicotine dependence Current Visit: No Qualifiers: Nicotine product type: cigarettes Substance use status: in withdrawal Qualified Code(s): F17.213 - Nicotine dependence, cigarettes, with withdrawal (3) Schizoaffective disorder Current Visit: No (4) Cocaine dependence Current Visit: No Qualifiers: Substance use status: uncomplicated Qualified Code(s): F14.20 - Cocaine dependence, uncomplicated
--- NOTE | 2017-07-29 12:38 | PN ---
S Progress Note Note: alert,oriented x 3,patient stated has a night mare, stated treated for lyme disease before last treted 1 year ago will do ammonia level and lyme ab WBRFLX in am dilantin level in am close monitoring
[2017-07-29] MEDS: CYCLOBENZAPRINE HCL 10 MG TABLET (FP) PO SCH ×2 (14:50→21:37)
[2017-07-29] MEDS: OLANZapine 7.5 MG TABLET PO SCH (21:37)
[2017-07-29] MEDS: MIRTAZAPINE 15 MG TABLET (FP) PO SCH (21:37)
[2017-07-29] MEDS: THIAMINE HCL 100 MG TABLET (FP) PO SCH (21:37)
[2017-07-29] MEDS: diphenhydrAMINE HCL 50 MG CAPSULE PO PRN (21:37)
[2017-07-29] MEDS: IBUPROFEN 400 MG TABLET (FP) PO PRN (21:38)
[2017-07-29] MEDS: AMMONIUM LACTATE 12% LOTION 225 GM BOTTLE TP PRN (21:41)
[2017-07-30] MEDS: CYCLOBENZAPRINE HCL 10 MG TABLET (FP) PO SCH ×3 (06:51→21:39)
[2017-07-30] MEDS: PHENYTOIN NA EXTENDED 100 MG CAPSULE (FP) PO SCH ×3 (06:52→21:38)
[2017-07-30] MEDS: BUPRENORPHINE/NALOXONE 8 MG/2 MG FILM PACKET SL SCH ×2 (10:32→21:42)
[2017-07-30] MEDS: PRENATAL VITAMINS W/ FOLIC ACID TABLET (FP) PO SCH (10:32)
[2017-07-30] MEDS: NICOTINE 14 MG/24 HOURS TOPICAL PATCH TD SCH (10:34)
[2017-07-30] MEDS: OLANZapine 7.5 MG TABLET PO SCH (21:38)
[2017-07-30] MEDS: MIRTAZAPINE 15 MG TABLET (FP) PO SCH (21:38)
[2017-07-30] MEDS: THIAMINE HCL 100 MG TABLET (FP) PO SCH (21:41)
[2017-07-30] MEDS: diphenhydrAMINE HCL 50 MG CAPSULE PO PRN (21:41)
[2017-07-31] MEDS: PHENYTOIN NA EXTENDED 100 MG CAPSULE (FP) PO SCH ×3 (07:14→21:34)
[2017-07-31] MEDS: CYCLOBENZAPRINE HCL 10 MG TABLET (FP) PO SCH ×3 (07:14→21:35)
[2017-07-31] MEDS: BUPRENORPHINE/NALOXONE 8 MG/2 MG FILM PACKET SL SCH ×2 (10:27→21:36)
[2017-07-31] MEDS: PRENATAL VITAMINS W/ FOLIC ACID TABLET (FP) PO SCH (10:27)
[2017-07-31] MEDS: NICOTINE 14 MG/24 HOURS TOPICAL PATCH TD SCH (10:29)
[2017-07-31] MEDS: MIRTAZAPINE 15 MG TABLET (FP) PO SCH (21:35)
[2017-07-31] MEDS: OLANZapine 7.5 MG TABLET PO SCH (21:36)
[2017-07-31] MEDS: THIAMINE HCL 100 MG TABLET (FP) PO SCH (21:36)
[2017-07-31] MEDS: diphenhydrAMINE HCL 50 MG CAPSULE PO PRN (21:38)
[2017-07-31] MEDS: IBUPROFEN 400 MG TABLET (FP) PO PRN (21:38)
[2017-08-01] MEDS: CYCLOBENZAPRINE HCL 10 MG TABLET (FP) PO SCH ×3 (06:43→22:02)
[2017-08-01] MEDS: PHENYTOIN NA EXTENDED 100 MG CAPSULE (FP) PO SCH ×3 (06:44→22:02)
[2017-08-01] MEDS: NICOTINE 14 MG/24 HOURS TOPICAL PATCH TD SCH (10:20)
[2017-08-01] MEDS: PRENATAL VITAMINS W/ FOLIC ACID TABLET (FP) PO SCH (10:20)
[2017-08-01] MEDS: BUPRENORPHINE/NALOXONE 8 MG/2 MG FILM PACKET SL SCH ×2 (10:21→22:02)
[2017-08-01] MEDS: MIRTAZAPINE 15 MG TABLET (FP) PO SCH (22:02)
[2017-08-01] MEDS: THIAMINE HCL 100 MG TABLET (FP) PO SCH (22:02)
[2017-08-01] MEDS: OLANZapine 7.5 MG TABLET PO SCH (22:03)
[2017-08-01] MEDS: diphenhydrAMINE HCL 50 MG CAPSULE PO PRN (22:03)
[2017-08-02] MEDS: PHENYTOIN NA EXTENDED 100 MG CAPSULE (FP) PO SCH ×3 (06:49→21:27)
[2017-08-02] MEDS: PRENATAL VITAMINS W/ FOLIC ACID TABLET (FP) PO SCH (10:22)
[2017-08-02] MEDS: BUPRENORPHINE/NALOXONE 8 MG/2 MG FILM PACKET SL SCH ×2 (10:23→21:27)
[2017-08-02] MEDS: NICOTINE 14 MG/24 HOURS TOPICAL PATCH TD SCH (10:23)
[2017-08-02] MEDS: MIRTAZAPINE 15 MG TABLET (FP) PO SCH (21:27)
[2017-08-02] MEDS: THIAMINE HCL 100 MG TABLET (FP) PO SCH (21:28)
[2017-08-02] MEDS: OLANZapine 7.5 MG TABLET PO SCH (21:28)
[2017-08-02] MEDS: diphenhydrAMINE HCL 50 MG CAPSULE PO PRN (21:29)
[2017-08-02] MEDS: IBUPROFEN 400 MG TABLET (FP) PO PRN (21:30)
[2017-08-03] MEDS: PHENYTOIN NA EXTENDED 100 MG CAPSULE (FP) PO SCH ×3 (06:31→21:34)
[2017-08-03] MEDS: PRENATAL VITAMINS W/ FOLIC ACID TABLET (FP) PO SCH (10:20)
[2017-08-03] MEDS: BUPRENORPHINE/NALOXONE 8 MG/2 MG FILM PACKET SL SCH ×2 (10:20→21:36)
[2017-08-03] MEDS: NICOTINE 14 MG/24 HOURS TOPICAL PATCH TD SCH (10:20)
[2017-08-03] MEDS ORDERED: LIDOCAINE VISCOUS 2% ORAL/TOP 20 ML UNIT-DOSE CUP MM PRN (18:47)
--- NOTE | 2017-08-03 20:01 | PN ---
S Progress Note Note: RECEIVED NURSE CALL THAT THE PATIENT NEEDS TO SEE A DENTIST, REFUSES MOTRIN PATIENT NEEDS TOOTH FILLING, NEEDS DENTAL REFERRAL LIDOCAINE MM TID PRN CONTINUE REHAB
[2017-08-03] MEDS: OLANZapine 7.5 MG TABLET PO SCH (21:34)
[2017-08-03] MEDS: MIRTAZAPINE 15 MG TABLET (FP) PO SCH (21:34)
[2017-08-03] MEDS: THIAMINE HCL 100 MG TABLET (FP) PO SCH (21:36)
[2017-08-03] MEDS: diphenhydrAMINE HCL 50 MG CAPSULE PO PRN (21:36)
[2017-08-03] MEDS: IBUPROFEN 400 MG TABLET (FP) PO PRN (21:36)
[2017-08-04] MEDS: IBUPROFEN 400 MG TABLET (FP) PO PRN (06:20)
[2017-08-04] MEDS: PHENYTOIN NA EXTENDED 100 MG CAPSULE (FP) PO SCH ×3 (06:22→21:31)
[2017-08-04] MEDS: NICOTINE 14 MG/24 HOURS TOPICAL PATCH TD SCH (10:19)
[2017-08-04] MEDS: BUPRENORPHINE/NALOXONE 8 MG/2 MG FILM PACKET SL SCH ×2 (10:19→21:32)
[2017-08-04] MEDS: PRENATAL VITAMINS W/ FOLIC ACID TABLET (FP) PO SCH (10:19)
[2017-08-04] MEDS ORDERED: AMOXICILLIN 500 MG CAPSULE (FP) PO ONE (13:56)
--- NOTE | 2017-08-04 13:56 | PN ---
S Progress Note Note: S Progress Note Note: patient reports abscess and painful cracked tooth a/p: tooth infection, oozing pus from abscess, spenser tooth at back of mouth needs to see dentist if pain not controlled. naprsyn, neurontin for pain atc, protonix fo stomach. amoxicillin for infection
[2017-08-04] MEDS ORDERED: LIDOCAINE VISCOUS 2% ORAL/TOP 100 ML BOTTLE MM PRN (13:57)
[2017-08-04] MEDS: PANTOPRAZOLE 40 MG TABLET (FP) PO SCH (14:38)
[2017-08-04] MEDS: NAPROXEN 500 MG TABLET (FP) PO SCH ×2 (14:38→21:31)
[2017-08-04] MEDS: AMOXICILLIN 500 MG CAPSULE (FP) PO SCH ×2 (14:59→21:31)
[2017-08-04] MEDS: GABAPENTIN 100 MG CAPSULE (FP) PO SCH ×2 (15:02→21:31)
[2017-08-04] MEDS: MIRTAZAPINE 15 MG TABLET (FP) PO SCH (21:31)
[2017-08-04] MEDS: THIAMINE HCL 100 MG TABLET (FP) PO SCH (21:32)
[2017-08-04] MEDS: diphenhydrAMINE HCL 50 MG CAPSULE PO PRN (21:32)
[2017-08-04] MEDS: OLANZapine 7.5 MG TABLET PO SCH (21:33)
[2017-08-05] MEDS: AMOXICILLIN 500 MG CAPSULE (FP) PO SCH ×3 (06:36→21:30)
[2017-08-05] MEDS: GABAPENTIN 100 MG CAPSULE (FP) PO SCH ×3 (06:36→21:30)
[2017-08-05] MEDS: PHENYTOIN NA EXTENDED 100 MG CAPSULE (FP) PO SCH ×3 (06:36→21:30)
[2017-08-05] MEDS: NAPROXEN 500 MG TABLET (FP) PO SCH ×2 (10:07→21:30)
[2017-08-05] MEDS: PANTOPRAZOLE 40 MG TABLET (FP) PO SCH (10:07)
[2017-08-05] MEDS: NICOTINE 14 MG/24 HOURS TOPICAL PATCH TD SCH (10:07)
[2017-08-05] MEDS: PRENATAL VITAMINS W/ FOLIC ACID TABLET (FP) PO SCH (10:07)
[2017-08-05] MEDS: BUPRENORPHINE/NALOXONE 8 MG/2 MG FILM PACKET SL SCH ×2 (13:17→21:29)
[2017-08-05] MEDS: AMMONIUM LACTATE 12% LOTION 225 GM BOTTLE TP SCH (21:29)
[2017-08-05] MEDS: MIRTAZAPINE 15 MG TABLET (FP) PO SCH (21:30)
[2017-08-05] MEDS: THIAMINE HCL 100 MG TABLET (FP) PO SCH (21:30)
[2017-08-05] MEDS: OLANZapine 7.5 MG TABLET PO SCH (21:30)
[2017-08-06] MEDS: GABAPENTIN 100 MG CAPSULE (FP) PO SCH ×3 (06:44→21:37)
[2017-08-06] MEDS: PHENYTOIN NA EXTENDED 100 MG CAPSULE (FP) PO SCH ×3 (06:44→21:37)
[2017-08-06] MEDS: AMOXICILLIN 500 MG CAPSULE (FP) PO SCH ×3 (06:44→21:37)
[2017-08-06] MEDS: PANTOPRAZOLE 40 MG TABLET (FP) PO SCH (09:54)
[2017-08-06] MEDS: PRENATAL VITAMINS W/ FOLIC ACID TABLET (FP) PO SCH (09:54)
[2017-08-06] MEDS: BUPRENORPHINE/NALOXONE 8 MG/2 MG FILM PACKET SL SCH ×2 (09:54→21:38)
[2017-08-06] MEDS: NAPROXEN 500 MG TABLET (FP) PO SCH ×2 (09:55→21:38)
[2017-08-06] MEDS: AMMONIUM LACTATE 12% LOTION 225 GM BOTTLE TP SCH ×2 (09:55→21:40)
[2017-08-06] MEDS: NICOTINE 14 MG/24 HOURS TOPICAL PATCH TD SCH (09:55)
[2017-08-06] MEDS: MIRTAZAPINE 15 MG TABLET (FP) PO SCH (21:37)
[2017-08-06] MEDS: THIAMINE HCL 100 MG TABLET (FP) PO SCH (21:38)
[2017-08-06] MEDS: OLANZapine 7.5 MG TABLET PO SCH (21:38)
[2017-08-07] MEDS: AMOXICILLIN 500 MG CAPSULE (FP) PO SCH ×3 (06:30→21:32)
[2017-08-07] MEDS: PHENYTOIN NA EXTENDED 100 MG CAPSULE (FP) PO SCH ×3 (06:30→21:32)
[2017-08-07] MEDS: GABAPENTIN 100 MG CAPSULE (FP) PO SCH ×3 (06:30→21:32)
[2017-08-07] MEDS: AMMONIUM LACTATE 12% LOTION 225 GM BOTTLE TP SCH ×2 (10:18→21:33)
[2017-08-07] MEDS: BUPRENORPHINE/NALOXONE 8 MG/2 MG FILM PACKET SL SCH ×2 (10:18→21:32)
[2017-08-07] MEDS: NAPROXEN 500 MG TABLET (FP) PO SCH ×2 (10:19→21:32)
[2017-08-07] MEDS: PRENATAL VITAMINS W/ FOLIC ACID TABLET (FP) PO SCH (10:19)
[2017-08-07] MEDS: PANTOPRAZOLE 40 MG TABLET (FP) PO SCH (10:19)
[2017-08-07] MEDS: NICOTINE 14 MG/24 HOURS TOPICAL PATCH TD SCH (10:19)
[2017-08-07] MEDS: THIAMINE HCL 100 MG TABLET (FP) PO SCH (21:32)
[2017-08-07] MEDS: MIRTAZAPINE 15 MG TABLET (FP) PO SCH (21:32)
[2017-08-07] MEDS: OLANZapine 7.5 MG TABLET PO SCH (21:33)
[2017-08-08] MEDS: GABAPENTIN 100 MG CAPSULE (FP) PO SCH ×3 (06:55→21:29)
[2017-08-08] MEDS: AMOXICILLIN 500 MG CAPSULE (FP) PO SCH ×3 (06:55→21:28)
[2017-08-08] MEDS: PHENYTOIN NA EXTENDED 100 MG CAPSULE (FP) PO SCH ×3 (06:55→21:29)
[2017-08-08] MEDS: NICOTINE 14 MG/24 HOURS TOPICAL PATCH TD SCH (10:12)
[2017-08-08] MEDS: PRENATAL VITAMINS W/ FOLIC ACID TABLET (FP) PO SCH (10:12)
[2017-08-08] MEDS: BUPRENORPHINE/NALOXONE 8 MG/2 MG FILM PACKET SL SCH ×2 (10:12→21:29)
[2017-08-08] MEDS: PANTOPRAZOLE 40 MG TABLET (FP) PO SCH (10:12)
[2017-08-08] MEDS: NAPROXEN 500 MG TABLET (FP) PO SCH ×2 (10:12→21:29)
[2017-08-08] MEDS: AMMONIUM LACTATE 12% LOTION 225 GM BOTTLE TP SCH ×2 (10:12→21:30)
[2017-08-08] MEDS: MIRTAZAPINE 15 MG TABLET (FP) PO SCH (21:29)
[2017-08-08] MEDS: THIAMINE HCL 100 MG TABLET (FP) PO SCH (21:29)
[2017-08-08] MEDS: diphenhydrAMINE HCL 50 MG CAPSULE PO PRN (21:30)
[2017-08-08] MEDS: OLANZapine 7.5 MG TABLET PO SCH (21:30)
[2017-08-09] MEDS: AMOXICILLIN 500 MG CAPSULE (FP) PO SCH ×3 (07:12→21:38)
[2017-08-09] MEDS: PHENYTOIN NA EXTENDED 100 MG CAPSULE (FP) PO SCH ×3 (07:12→21:38)
[2017-08-09] MEDS: GABAPENTIN 100 MG CAPSULE (FP) PO SCH ×3 (07:12→21:38)
[2017-08-09] MEDS: PANTOPRAZOLE 40 MG TABLET (FP) PO SCH (10:16)
[2017-08-09] MEDS: NICOTINE 14 MG/24 HOURS TOPICAL PATCH TD SCH (10:16)
[2017-08-09] MEDS: BUPRENORPHINE/NALOXONE 8 MG/2 MG FILM PACKET SL SCH ×2 (10:16→21:40)
[2017-08-09] MEDS: AMMONIUM LACTATE 12% LOTION 225 GM BOTTLE TP SCH ×2 (10:16→21:40)
[2017-08-09] MEDS: PRENATAL VITAMINS W/ FOLIC ACID TABLET (FP) PO SCH (10:16)
[2017-08-09] MEDS: NAPROXEN 500 MG TABLET (FP) PO SCH ×2 (10:16→21:38)
[2017-08-09] MEDS: diphenhydrAMINE HCL 50 MG CAPSULE PO PRN (21:38)
[2017-08-09] MEDS: THIAMINE HCL 100 MG TABLET (FP) PO SCH (21:38)
[2017-08-09] MEDS: MIRTAZAPINE 15 MG TABLET (FP) PO SCH (21:38)
[2017-08-09] MEDS: OLANZapine 7.5 MG TABLET PO SCH (21:40)
[2017-08-10] MEDS: AMOXICILLIN 500 MG CAPSULE (FP) PO SCH ×3 (06:19→21:20)
[2017-08-10] MEDS: PHENYTOIN NA EXTENDED 100 MG CAPSULE (FP) PO SCH ×3 (06:19→21:21)
[2017-08-10] MEDS: GABAPENTIN 100 MG CAPSULE (FP) PO SCH ×3 (06:19→21:21)
[2017-08-10] MEDS: PRENATAL VITAMINS W/ FOLIC ACID TABLET (FP) PO SCH (10:27)
[2017-08-10] MEDS: BUPRENORPHINE/NALOXONE 8 MG/2 MG FILM PACKET SL SCH ×2 (10:27→21:21)
[2017-08-10] MEDS: NAPROXEN 500 MG TABLET (FP) PO SCH ×2 (10:27→21:23)
[2017-08-10] MEDS: PANTOPRAZOLE 40 MG TABLET (FP) PO SCH (10:27)
[2017-08-10] MEDS: NICOTINE 14 MG/24 HOURS TOPICAL PATCH TD SCH (10:28)
[2017-08-10] MEDS: AMMONIUM LACTATE 12% LOTION 225 GM BOTTLE TP SCH ×2 (11:33→21:22)
[2017-08-10] MEDS: THIAMINE HCL 100 MG TABLET (FP) PO SCH (21:21)
[2017-08-10] MEDS: MIRTAZAPINE 15 MG TABLET (FP) PO SCH (21:22)
[2017-08-10] MEDS: diphenhydrAMINE HCL 50 MG CAPSULE PO PRN (21:23)
[2017-08-10] MEDS: OLANZapine 7.5 MG TABLET PO SCH (21:24)
[2017-08-11] MEDS: AMOXICILLIN 500 MG CAPSULE (FP) PO SCH (06:36)
[2017-08-11] MEDS: GABAPENTIN 100 MG CAPSULE (FP) PO SCH (06:37)
[2017-08-11] MEDS: PHENYTOIN NA EXTENDED 100 MG CAPSULE (FP) PO SCH (06:37)
[2017-08-11 06:49] VITALS: BP 132/74; PULSE 76; TEMP 98.1
[2017-08-11] MEDS: PANTOPRAZOLE 40 MG TABLET (FP) PO SCH (09:36)
[2017-08-11] MEDS: NAPROXEN 500 MG TABLET (FP) PO SCH (09:36)
[2017-08-11] MEDS: BUPRENORPHINE/NALOXONE 8 MG/2 MG FILM PACKET SL SCH (09:36)
[2017-08-11] MEDS: PRENATAL VITAMINS W/ FOLIC ACID TABLET (FP) PO SCH (09:36)
[2017-08-11] MEDS: NICOTINE 14 MG/24 HOURS TOPICAL PATCH TD SCH (09:37)
[2017-08-11] MEDS: AMMONIUM LACTATE 12% LOTION 225 GM BOTTLE TP SCH (09:37)
--- NOTE | 2017-08-11 09:50 | PN ---
Psychiatric Progress Note Vital Signs: Vital Signs Period Temp Pulse Resp BP Sys/Stephens Pulse Ox Last 24 Hr 98.1 F 76 16-18 132/74 Date of Session: 08/11/17 Chief Complaint:: discharge visit HPI: Patient is addressing alcohol, nicotine, cocaine dependence comorbid Schizoaffective disorder. ROS: WNL Current Medications: Active Medications Generic Name Dose Route Start Last Admin Trade Name Freq PRN Reason Stop Dose Admin Acetaminophen 650 mg 07/21/17 14:26 07/30/17 21:42 Tylenol - PO 650 mg Q4H PRN Administration FEVER OR PAIN Al Hydroxide/Mg Hydroxide 30 ml 07/21/17 14:26 Mylanta Oral Suspension - PO Q6H PRN DYSPEPSIA Amoxicillin 500 mg 08/04/17 14:00 08/11/17 06:36 Amoxicillin - PO 500 mg TID CHELSEA Administration Buprenorphine/Naloxone 1 each 08/05/17 12:30 08/11/17 09:36 Suboxone 8mg/2mg Sl Film - SL 08/12/17 12:29 1 each BID CHELSEA Administration Diphenhydramine HCl 50 mg 07/21/17 14:26 08/10/17 21:23 Benadryl - PO 50 mg HSMR1 PRN Administration FOR ITCHING Eucalyptus/Menthol/Phenol/Sorbitol 1 each 07/21/17 14:26 Cepastat Lozenge - MM Q4H PRN SORE THROAT Gabapentin 100 mg 08/04/17 14:00 08/11/17 06:37 Neurontin - PO 100 mg TID CHELSEA Administration Guaifenesin 10 ml 07/21/17 14:26 Robitussin Dm - PO Q6H PRN COUGH Lactic Acid 1 applic 08/05/17 22:00 08/11/17 09:37 Lac-Hydrin 12 TP Not Given BID CHELSEA Lidocaine HCl 20 ml 08/03/17 18:47 Xylocaine 2% Viscous Oral - MM TID PRN ORAL PAIN/MOUTH SORES Lidocaine HCl 15 ml 08/04/17 13:57 Xylocaine 2% Viscous MM Q6H PRN ORAL PAIN/MOUTH SORES Loperamide HCl 4 mg 07/21/17 14:26 Imodium - PO Q6H PRN DIARRHEA Magnesium Hydroxide 30 ml 07/21/17 14:26 Milk Of Magnesia - PO DAILY PRN CONSTIPATION Mirtazapine 45 mg 07/21/17 22:00 08/10/17 21:22 Remeron - PO 45 mg HS CHELSEA Administration Naproxen 500 mg 08/04/17 12:45 08/11/17 09:36 Naprosyn - PO 500 mg BID CHELSEA Administration Nicotine 14 mg 07/21/17 14:30 08/11/17 09:37 Nicoderm Patch - TD Not Given DAILY CHELSEA Nicotine Polacrilex 2 mg 07/21/17 14:26 Nicorette Gum - BUC Q2H PRN NICOTINE REPLACEMENT RX Olanzapine 15 mg 07/29/17 22:00 08/10/17 21:24 Zyprexa - PO 15 mg HS CHELSEA Administration Pantoprazole Sodium 40 mg 08/04/17 12:45 08/11/17 09:36 Protonix - PO 40 mg DAILY CHELSEA Administration Phenytoin Sodium 100 mg 07/23/17 15:00 08/11/17 06:37 Dilantin - PO 100 mg TID CHELSEA Administration Multivit/Folic Acid/Iron 1 tab 07/22/17 10:00 08/11/17 09:36 Vitamins (Sjr) - PO 1 tab DAILY CHELSEA Administration Pseudoephedrine/Triprolidine 1 combo 07/21/17 14:26 Actifed - PO TID PRN NASAL CONGESTION Thiamine HCl 100 mg 07/21/17 22:00 08/10/17 21:21 Vitamin B1 - PO 100 mg HS CHELSEA Administration Current Side Effect: No Lab tests ordered: No Lab tests reviewed: Yes Provider note:: Patient has completed today his treatment and met his goals,he will continue to address his issues at the next level of care.Patient reports he will return to [facility] and continue working with his case management rn looking for adequate housing. He gained insights into his addiction and motivated to continue maintain abstinence. Patient responded well to medications(Remeron and Zyprexa) management. Scripts provided, patient was encouraged to continue maintian abstinence and utilize all supports to prevent relapses, he is stable for discharge today. Total face to face time:: 25 Mental Status Exam - Mental Status Exam Alert and Oriented to: Time, Place Cognitive Function: Good Patient Appearance: Well Groomed Mood: Hopeful Affect: Appropriate, Mood Congruent Patient Behavior: Appropriate, Cooperative Speech Pattern: Appropriate Voice Loudness: Normal Thought Process: Intact Thought Disorder: Not Present Hallucinations: Denies Suicidal Ideation: Denies Homicidal Ideation: Denies Insight/Judgement: Good Sleep: Well Appetite: Good Muscle strength/Tone: Normal Gait/Station: Normal Psychiatric Treatment Plan - Problem List (1) Alcohol dependence Current Visit: No (2) Nicotine dependence Current Visit: No Qualifiers: Nicotine product type: cigarettes Substance use status: in withdrawal Qualified Code(s): F17.213 - Nicotine dependence, cigarettes, with withdrawal; F17.213 - Nicotine dependence, cigarettes, with withdrawal (3) Schizoaffective disorder Current Visit: No (4) Cocaine dependence Current Visit: No Qualifiers: Substance use status: uncomplicated Qualified Code(s): F14.20 - Cocaine dependence, uncomplicated; F14.20 - Cocaine dependence, uncomplicated; F14.20 - Cocaine dependence, uncomplicated
== END 2017-08-11 11:05 | disposition home or self-care (01) | DRG 772 ==
LOC: YASAS 13:05 → Y5N 13:06
PROVIDERS: ADMIT Psychiatry & Neurology Psychiatry; ATTEND Psychiatry & Neurology Psychiatry
PROC: HZ42ZZZ Group Counseling for Substance Abuse Treatment, Cognitive-Behavioral (ICD-10-PCS; principal; 2017-07-21)
DX: F10.20 Alcohol dependence, uncomplicated (principal); F14.20 Cocaine dependence, uncomplicated; F17.213 Nicotine dependence, cigarettes, with withdrawal; F25.9 Schizoaffective disorder, unspecified; K04.7 Periapical abscess without sinus; K03.81 Cracked tooth
CPT/HCPCS: 36415; 82140; 86618

== ENCOUNTER 2018-08-20 16:22 | Inpatient (IN) | payer BC ==
[2018-08-20 17:39] VITALS: BMI 28.2
--- NOTE | 2018-08-20 20:03 | HP ---
COWS - Scale Resting Pulse: 0= [place] 80 or Below Sweatin= Chills/Flushing Restless Observation: 0= Sits Still Pupil Size: 0= Normal to Room Light Bone or Joint Aches: 4=Acute Joint/Muscle Pain Runny Nose/ Eye Tearin= Runny Nose/Eyes GI Upset > 30mins: 3= Vomiting/Diarrhea (vomiting x 1, diarrhea x 3) Tremor Observation: 2= Slight Tremor Visible Yawning Observation: 0= None Anxiety or Irritability: 2=Irritable/Anxious Goose Flesh Skin: 0=Smooth Skin COWS Score: 14 CIWA Score - CIWA Score Nausea/Vomitin Muscle Tremors: 3 Anxiety: 3 Agitation: 3 Paroxysmal Sweats: 1-Minimal Palms Moist Orientation: 0-Oriented Tacttile Disturbances: 0-None Auditory Disturbances: 0-None Visual Disturbances: 0-None Headache: 2-Mild CIWA-Ar Total Score: 15 Admission ROS S - HPI Allergies/Adverse Reactions: Allergies Allergy/AdvReac Type Severity Reaction Status Date / Time No Known Allergies Allergy Verified 08/20/18 18:56 History of Present Illness: 37 years old male with a long history of heroin and alcohol dependence is seeking admission to detox. Patient has been in previous detox and reports 2 years of sobriety. He has medical history of hypertension, hyperlipidemia, anxiety, depression, lyme arthritis, - Ebola screening Have you traveled outside of the country in the last 21 days: No (N) Have you had contact with anyone from an Ebola affected area: No Have you been sick,other than usual withdrawal symptoms: No Do you have a fever: No - Review of Systems Constitutional: No Symptoms Reported, Chills, Loss of Appetite, Malaise, Changes in sleep EENT: reports: No Symptoms Reported Respiratory: reports: No Symptoms reported Cardiac: reports: No Symptoms Reported GI: reports: Diarrhea, Poor Appetite, Poor Fluid Intake, Vomiting, Abdominal cramping : reports: No Symptoms Reported Musculoskeletal: reports: Back Pain, Muscle Pain Integumentary: reports: Dryness Neuro: reports: Tremors Endocrine: reports: No Symptoms Reported Hematology: reports: No Symptoms Reported Psychiatric: reports: Anxious, Depressed Other Systems: Reviewed and Negative Patient History - Patient Medical History Hx Anemia: No Hx Asthma: No Hx Chronic Obstructive Pulmonary Disease (COPD): No Hx Cancer: No Hx Cardiac Disorders: No Hx Congestive Heart Failure: No Hx Hypertension: Yes (Not on medication) Hx Hypercholesterolemia: Yes (Not on medication) Hx Pacemaker: No HX Cerebrovascular Accident: No Hx Seizures: No Hx Dementia: No Hx Diabetes: No Hx Gastrointestinal Disorders: No Hx Liver Disease: No Hx Genitourinary Disorders: No Hx Sexually Transmitted Disorders: No Hx Renal Disease (ESRD): No Hx Thyroid Disease: No Hx Human Immunodeficiency Virus (HIV): No (Negative 2016) Hx Hepatitis C: No Hx Depression: Yes (Not on medication) Hx Suicide Attempt: No Hx Bipolar Disorder: No Hx Schizophrenia: Yes (schizoaffective disorder) Other Medical History: Anxiety , lyme arthritis- Not on medication - Patient Surgical History Past Surgical History: No Hx Neurologic Surgery: No Hx Cataract Extraction: No Hx Cardiac Surgery: No Hx Lung Surgery: No Hx Breast Surgery: No Hx Breast Biopsy: No Hx Abdominal Surgery: No Hx Appendectomy: No Hx Cholecystectomy: No Hx Genitourinary Surgery: No Hx Section: No Hx Orthopedic Surgery: No Anesthesia Reaction: No - PPD History Previous Implant?: Yes Documented Results: Negative w/o proof Date: 07/20/17 Results: 0 mm. PPD to be Administered?: Yes - Reproductive History Patient is a Female of Child Bearing Age (11 -55 yrs old): No (Male) - Smoking Cessation Smoking history: Current every day smoker Have you smoked in the past 12 months: Yes Aproximately how many cigarettes per day: 5 Cigars Per Day: 0 Hx Chewing Tobacco Use: No Initiated information on smoking cessation: Yes 'Breaking Loose' booklet given: 08/20/18 - Substance & Tx. History Hx Alcohol Use: Yes Hx Substance Use: Yes Substance Use Type: Alcohol, Heroin, Opiates Hx Substance Use Treatment: Yes ([facility]) - Substances Abused Alcohol Route: Oral Frequency: Daily Amount used: 1 PACK BEER Age of first use: 14 Date of Last Use: 08/20/18 Heroin Route: SNIFF Frequency: Daily Amount used: 1 BUNDLE Age of first use: 20 Date of Last Use: 08/20/18 Family Disease History - Family Disease History Family History: Denies Admission Physical Exam BHS - Vital Signs Vital Signs: Vital Signs - 24 hr 08/20/18 17:36 Temperature 97.8 F Pulse Rate 77 Respiratory 18 Rate Blood Pressure 143/76 - Physical General Appearance: Yes: Moderate Distress, Tremorous, Irritable, Sweating, Anxious HEENTM: Yes: EOMI, Normal ENT Inspection, Normocephalic, Normal Voice, ERIC Respiratory: Yes: Lungs Clear, Normal Breath Sounds, No Respiratory Distress Neck: Yes: Supple Breast: Yes: Breast Exam Deferred Cardiology: Yes: Regular Rhythm, Regular Rate Abdominal: Yes: Normal Bowel Sounds Genitourinary: Yes: Within Normal Limits Back: Yes: Normal Inspection Musculoskeletal: Yes: Back pain Extremities: Yes: Tremors 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, Alert, Normal Mood/Affect Integumentary: Yes: Warm Lymphatic: Yes: Within Normal Limits - Diagnostic (1) Hypertension Current Visit: Yes Status: Chronic (2) Alcohol dependence with uncomplicated withdrawal Current Visit: Yes Status: Chronic (3) Nicotine dependence Current Visit: Yes Status: Chronic Qualifiers: Nicotine product type: cigarettes Substance use status: in withdrawal Qualified Code(s): F17.213 - Nicotine dependence, cigarettes, with withdrawal (4) Lyme arthritis Current Visit: Yes Status: Chronic (5) Hyperlipidemia Current Visit: Yes Status: Suspected Qualifiers: Hyperlipidemia type: unspecified Qualified Code(s): E78.5 - Hyperlipidemia , unspecified Cleared for Admission S - Detox or Rehab [facility] Level of Care: Medically Managed Detox Regimen/Protocol: Methadone/Librium S Breath Alcohol Content Breath Alcohol Content: 0.026 Urine Drug Screen - Results Drug Screen Negative: No Urine Drug Screen Results: OPI-Opiates, MTD-Methadone
[2018-08-20] MEDS ORDERED: MAGNESIUM CITRATE 300 ML BOTTLE PO PRN (20:17)
[2018-08-20] MEDS ORDERED: LOPERAMIDE HCL 2 MG CAPSULE PO PRN (20:17)
[2018-08-20] MEDS ORDERED: MENTHOL/PHENOL 1 EACH UD MM PRN (20:17)
[2018-08-20] MEDS ORDERED: MAG HYDROX/AL HYDROX/SIMETH 30 ML UNIT-DOSE CUP PO PRN (20:17)
[2018-08-20] MEDS ORDERED: chlordiazePOXIDE HCL 25 MG CAPSULE PO PRN (20:17)
[2018-08-20] MEDS ORDERED: METHADONE HCL 10 MG TABLET (FOR DETOX USE ONLY) PO ONE ×2 (20:17→23:00)
[2018-08-20] MEDS ORDERED: ACETAMINOPHEN 325 MG TABLET (FP) PO PRN (20:17)
[2018-08-20] MEDS ORDERED: guaiFENesin/D-METHORPHAN HB 10 ML UNIT-DOSE CUPS PO PRN (20:17)
[2018-08-20] MEDS ORDERED: MAGNESIUM HYDROX 2400MG/30ML ORAL SUSPENSION 30 ML CUP PO PRN (20:17)
[2018-08-20] MEDS ORDERED: P-EPHED 60MG/TRIPROLIDI 2.5MG TABLET PO PRN (20:17)
[2018-08-20] MEDS ORDERED: NICOTINE POLACRILEX 2 MG GUM BC PRN (20:17)
[2018-08-20] MEDS: chlordiazePOXIDE HCL 25 MG CAPSULE PO SCH (22:30)
[2018-08-20] MEDS: THIAMINE HCL 100 MG TABLET (FP) PO SCH (22:30)
[2018-08-21] MEDS: chlordiazePOXIDE HCL 25 MG CAPSULE PO SCH ×4 (05:38→22:19)
[2018-08-21] MEDS ORDERED: METHADONE HCL 10 MG TABLET (FOR DETOX USE ONLY) PO SCH (10:00)
[2018-08-21] MEDS: NICOTINE 14 MG/24 HOURS TOPICAL PATCH TD SCH (10:04)
[2018-08-21] MEDS: PRENATAL VITAMINS W/ FOLIC ACID TABLET (FP) PO SCH (10:04)
[2018-08-21 10:45] LABS: URINE APPEARANCE CLEAR; URINE BILIRUBIN NEGATIVE (<2.0 mg/dL); URINE COLOR YELLOW; URINE GLUCOSE (UA) NEGATIVE (NEGATIVE); URINE KETONE NEGATIVE (NEGATIVE); URINE LEUK ESTERASE NEGATIVE (NEGATIVE); URINE NITRITE NEGATIVE (NEGATIVE); URINE PROTEIN NEGATIVE (NEGATIVE); URINE UROBILINOGEN NEGATIVE mg/dL (0.2-1.0)
[2018-08-21 11:01] LABS: ALBUMIN 3.2 g/dl (3.4-5.0); ALK PHOS 69 U/L (45-117); ANION GAP 6 MMOL/L (8-16); BILIRUBIN,TOTAL 0.6 mg/dL (0.2-1); BLOOD UREA NITROGEN 9 mg/dL (7-18); CALCIUM 8.4 mg/dL (8.5-10.1); CHLORIDE 108 mmol/L (98-107); CO2 27 mmol/L (21-32); CREATININE 0.9 mg/dL (0.55-1.3); GLUCOSE,RANDOM 114 mg/dL (74-106); SGOT/AST 27 U/L (15-37); SGPT/ALT 39 U/L (13-61); SODIUM 141 mmol/L (136-145); TOT PROT 6.2 g/dl (6.4-8.2)
[2018-08-21 11:07] LABS: HEMATOCRIT 43.3 % (35.4-49); MCH 28.8 pg (25.7-33.7); MCHC 32.4 g/dl (32.0-35.9); MEAN CELL VOLUME 88.9 fl (80-96); MEAN PLT VOLUME 8.9 fl (7.5-11.1); PLATELET COUNT 259 K/MM3 (134-434); RBC 4.87 M/mm3 (4.00-5.60); RDW 14.9 % (11.9-15.9); WHITE BLOOD COUNT 6.1 K/mm3 (4.0-10.0)
--- NOTE | 2018-08-21 15:02 | CONSULT ---
[facility] Psychiatric Consult - Data Date of interview: 08/21/18 Admission source: [facility] Identifying data: Re-admission to [facility] for this 37 y/o AA male seeking detoxification treatment, on , for alcohol and heroin dependence. Patient is single without dependents, homeless, unemployed and supported on odd jobs. Substance Abuse History: Confirmed by the patient in this interview. Details in current [facility] report : Smoking history: Current every day smoker. Have you smoked in the past 12 months: Yes. Aproximately how many cigarettes per day: 5. Cigars Per Day: 0. Hx Chewing Tobacco Use: No. Initiated information on smoking cessation: Yes. 'Breaking Loose' booklet given: 08/20/18. - Substance & Tx. History. Hx Alcohol Use: Yes. Hx Substance Use: Yes. Substance Use Type : Alcohol, Heroin, Opiates. Hx Substance Use Treatment: Yes ([facility] - Substances Abused. Alcohol. Route: Oral. Frequency: Daily. Amount used: 1 PACK BEER. Age of first use: 14. Date of Last Use: 08/20/18. Heroin. Route: SNIFF. Frequency: Daily. Amount used: 1 BUNDLE. Age of first use: 20. Date of Last Use: 08/20/18 Medical History: Remarkable for a history of seizure disorder (head trauma), hypertension, Lyme disease-related arthritis, hypertension and dyslipidemia. Psychiatric History: Patient admits to a history of multiple psychiatric hospitalizations ([facility]). Reportedly diagnosed with Schizoaffective Disorder (10 years ago). Mr Dickey declares that he is currently seeing a private psychiatrist in the [place] for medication management. Endorses a regimen consisting of remeron, olanzapine, clonazepam. Prescribed but NOT taken according to self report. " I am doing fine and I feel that there is no need for me to take these medications. I take good care of myself ". Patient denies history of suicide attempts. Physical/Sexual Abuse/Trauma History: Patient denies history of abuse. History of multiple arrests and incarcerations. Still on parole. Additional Comment: Urine Drug Screen Results: OPI-Opiates, MTD-Methadone. Noted. Mental Status Exam - Mental Status Exam Alert and Oriented to: Time, Place, Person Cognitive Function: Good Patient Appearance: Well Groomed (muscular built) Mood: Hopeful, Euthymic Affect: Appropriate, Normal Range Patient Behavior: Appropriate, Cooperative Speech Pattern: Clear Voice Loudness: Normal Thought Process: Intact, Goal Oriented Thought Disorder: Not Present Hallucinations: Denies Suicidal Ideation: Denies Homicidal Ideation: Denies Insight/Judgement: Poor Sleep: Well Appetite: Good Muscle strength/Tone: Normal Gait/Station: Normal Psychiatric Findings - Problem List ([place] 1, 2,3) (1) Opioid dependence Current Visit: Yes Status: Acute (2) Alcohol dependence with uncomplicated withdrawal Current Visit: Yes Status: Acute (3) Nicotine dependence Current Visit: Yes Status: Acute Qualifiers: Nicotine product type: cigarettes Substance use status: in withdrawal Qualified Code(s): F17.213 - Nicotine dependence, cigarettes, with withdrawal (4) Schizoaffective disorder Current Visit: Yes Status: Chronic Comment: As per self report and existing records. Non-adherent to medications. (5) Non-compliant patient Current Visit: Yes Status: Chronic - Initial Treatment Plan Initial Treatment Plan: Psychoeducation. Sleep hygiene. NA/AA meetings recommended to the patient. Psychotherapy : group, insight-oriented, supportive. Patient declines to resume psychotropic medications with the exception of the components of the current detoxification regimen. NOT receptive to the topic of relapse prevention. Detoxification in progress. Observation.
--- NOTE | 2018-08-21 18:08 | EKG ---
Test Reason : Blood Pressure : / mmHG Vent. Rate : 067 BPM Atrial Rate : 067 BPM P-R Int : 150 ms QRS Dur : 106 ms QT Int : 412 ms P-R-T Axes : 056 073 041 degrees QTc Int : 435 ms NORMAL SINUS RHYTHM WITH SINUS ARRHYTHMIA NORMAL ECG WHEN COMPARED WITH ECG OF 18-JUL-2017 01:07, NO SIGNIFICANT CHANGE WAS FOUND Confirmed by CELINE CHAMBERLAIN MD ([id number]) on 08/21/2018 6:08:38 PM Referred By: Confirmed By:CELINE CHAMBERLAIN MD
--- NOTE | 2018-08-21 21:31 | PN ---
S CIWA - CIWA Score Nausea/Vomitin Muscle Tremors: 3 Anxiety: 3 Agitation: 2 Paroxysmal Sweats: 3 Orientation: 0-Oriented Tacttile Disturbances: 0-None Auditory Disturbances: 0-None Visual Disturbances: 0-None Headache: 0-None Present CIWA-Ar Total Score: 13 S COWS - Scale Resting Pulse: 0= [place] 80 or Below Sweatin=Flushed/Facial Moisture Restless Observation: 0= Sits Still Pupil Size: 0= Normal to Room Light Bone or Joint Aches: 1= Mild Discomfort Runny Nose/ Eye Tearin= Nasal Congestion GI Upset > 30mins: 1= Stomach Cramp Tremor Observation of Outstretched Hands: 2= Slight Tremor Visible Yawning Observation: 1= 1-2x During Session Anxiety or Irritability: 2=Irritable/Anxious Goose Flesh Skin: 0=Smooth Skin COWS Score: 10 [facility] Progress Note (SOAP) Subjective: INTERRUPTED SLEEP SWEATS SHAKES Objective: 08/21/18 21:30 Sleeping, arousable A & Ox 3 Laboratory Last Values WBC 6.1 K/mm3 (4.0-10.0) 08/21/18 08:00 RBC 4.87 M/mm3 (4.00-5.60) 08/21/18 08:00 Hgb 14.0 GM/dL (11.7-16.9) 08/21/18 08:00 Hct 43.3 % (35.4-49) 08/21/18 08:00 MCV 88.9 fl (80-96) 08/21/18 08:00 MCH 28.8 pg (25.7-33.7) 08/21/18 08:00 MCHC 32.4 g/dl (32.0-35.9) 08/21/18 08:00 RDW 14.9 % (11.9-15.9) 08/21/18 08:00 Plt Count 259 K/MM3 (134-434) 08/21/18 08:00 MPV 8.9 fl (7.5-11.1) 08/21/18 08:00 Sodium 141 mmol/L (136-145) 08/21/18 08:00 Potassium 4.0 mmol/L (3.5-5.1) 08/21/18 08:00 Chloride 108 mmol/L (98-107) H 08/21/18 08:00 Carbon Dioxide 27 mmol/L (21-32) 08/21/18 08:00 Anion Gap 6 MMOL/L (8-16) L 08/21/18 08:00 BUN 9 mg/dL (7-18) 08/21/18 08:00 Creatinine 0.9 mg/dL (0.55-1.3) 08/21/18 08:00 Creat Clearance w eGFR > 60 (>60) 08/21/18 08:00 Random Glucose 114 mg/dL (74-106) H 08/21/18 08:00 Calcium 8.4 mg/dL (8.5-10.1) L 08/21/18 08:00 Total Bilirubin 0.6 mg/dL (0.2-1) 08/21/18 08:00 AST 27 U/L (15-37) 08/21/18 08:00 ALT 39 U/L (13-61) 08/21/18 08:00 Alkaline Phosphatase 69 U/L (45-117) 08/21/18 08:00 Total Protein 6.2 g/dl (6.4-8.2) L 08/21/18 08:00 Albumin 3.2 g/dl (3.4-5.0) L 08/21/18 08:00 Urine Color Yellow 08/21/18 08:50 Urine Appearance Clear 08/21/18 08:50 Urine pH 5.0 (5.0-8.0) 08/21/18 08:50 Ur Specific [place] 1.018 (1.010-1.035) 08/21/18 08:50 Urine Protein Negative (NEGATIVE) 08/21/18 08:50 Urine Glucose (UA) Negative (NEGATIVE) 08/21/18 08:50 Urine Ketones Negative (NEGATIVE) 08/21/18 08:50 Urine Blood Negative (NEGATIVE) 08/21/18 08:50 Urine Nitrite Negative (NEGATIVE) 08/21/18 08:50 Urine Bilirubin Negative (<2.0 mg/dL) 08/21/18 08:50 Urine Urobilinogen Negative mg/dL (0.2-1.0) 08/21/18 08:50 Ur Leukocyte Esterase Negative (NEGATIVE) 08/21/18 08:50 RPR Titer Nonreactive (NONREACTIVE) 08/21/18 08:00 labs noted, wnl Assessment: 08/21/18 21:31 withdrawal sx Plan: continue detox increase po hydration
[2018-08-21] MEDS: THIAMINE HCL 100 MG TABLET (FP) PO SCH (22:19)
[2018-08-22] MEDS: chlordiazePOXIDE HCL 25 MG CAPSULE PO SCH ×3 (07:04→17:57)
[2018-08-22] MEDS: METHADONE HCL 5 MG TABLET (FOR DETOX USE ONLY) PO SCH (10:03)
[2018-08-22] MEDS: PRENATAL VITAMINS W/ FOLIC ACID TABLET (FP) PO SCH (10:03)
[2018-08-22] MEDS: NICOTINE 14 MG/24 HOURS TOPICAL PATCH TD SCH (10:05)
--- NOTE | 2018-08-22 11:48 | PN ---
[facility] CIWA - CIWA Score Nausea/Vomitin-No Nausea/No Vomiting Muscle Tremors: 2 Anxiety: 3 Agitation: 2 Paroxysmal Sweats: 1-Minimal Palms Moist Orientation: 1-Uncertain about Date Tacttile Disturbances: 1-Very Mild Itch/Numbness Auditory Disturbances: 0-None Visual Disturbances: 0-None Headache: 1-Very Mild CIWA-Ar Total Score: 11 S COWS - Scale Resting Pulse: 0= OK 80 or Below Sweatin= Chills/Flushing Restless Observation: 1= Difficult to Sit Still Pupil Size: 0= Normal to Room Light Bone or Joint Aches: 2= Severe Diffuse Aches Runny Nose/ Eye Tearin= Nasal Congestion GI Upset > 30mins: 1= Stomach Cramp Tremor Observation of Outstretched Hands: 2= Slight Tremor Visible Yawning Observation: 1= 1-2x During Session Anxiety or Irritability: 1=Feels Anxious/Irritable Goose Flesh Skin: 0=Smooth Skin COWS Score: 10 [facility] Progress Note (SOAP) Subjective: sweat tremor body aches restlessness anxiety Objective: 08/22/18 11:52 Vital Signs Temperature 97.9 F 08/22/18 09:39 Pulse Rate 65 08/22/18 09:39 Respiratory Rate 18 08/22/18 09:39 Blood Pressure 134/79 08/22/18 09:39 O2 Sat by Pulse Oximetry (%) Laboratory Last Values WBC 6.1 K/mm3 (4.0-10.0) 08/21/18 08:00 RBC 4.87 M/mm3 (4.00-5.60) 08/21/18 08:00 Hgb 14.0 GM/dL (11.7-16.9) 08/21/18 08:00 Hct 43.3 % (35.4-49) 08/21/18 08:00 MCV 88.9 fl (80-96) 08/21/18 08:00 MCH 28.8 pg (25.7-33.7) 08/21/18 08:00 MCHC 32.4 g/dl (32.0-35.9) 08/21/18 08:00 RDW 14.9 % (11.9-15.9) 08/21/18 08:00 Plt Count 259 K/MM3 (134-434) 08/21/18 08:00 MPV 8.9 fl (7.5-11.1) 08/21/18 08:00 Sodium 141 mmol/L (136-145) 08/21/18 08:00 Potassium 4.0 mmol/L (3.5-5.1) 08/21/18 08:00 Chloride 108 mmol/L (98-107) H 08/21/18 08:00 Carbon Dioxide 27 mmol/L (21-32) 08/21/18 08:00 Anion Gap 6 MMOL/L (8-16) L 08/21/18 08:00 BUN 9 mg/dL (7-18) 08/21/18 08:00 Creatinine 0.9 mg/dL (0.55-1.3) 08/21/18 08:00 Creat Clearance w eGFR > 60 (>60) 08/21/18 08:00 Random Glucose 114 mg/dL (74-106) H 08/21/18 08:00 Calcium 8.4 mg/dL (8.5-10.1) L 08/21/18 08:00 Total Bilirubin 0.6 mg/dL (0.2-1) 08/21/18 08:00 AST 27 U/L (15-37) 08/21/18 08:00 ALT 39 U/L (13-61) 08/21/18 08:00 Alkaline Phosphatase 69 U/L (45-117) 08/21/18 08:00 Total Protein 6.2 g/dl (6.4-8.2) L 08/21/18 08:00 Albumin 3.2 g/dl (3.4-5.0) L 08/21/18 08:00 Urine Color Yellow 08/21/18 08:50 Urine Appearance Clear 08/21/18 08:50 Urine pH 5.0 (5.0-8.0) 08/21/18 08:50 Ur Specific [place] 1.018 (1.010-1.035) 08/21/18 08:50 Urine Protein Negative (NEGATIVE) 08/21/18 08:50 Urine Glucose (UA) Negative (NEGATIVE) 08/21/18 08:50 Urine Ketones Negative (NEGATIVE) 08/21/18 08:50 Urine Blood Negative (NEGATIVE) 08/21/18 08:50 Urine Nitrite Negative (NEGATIVE) 08/21/18 08:50 Urine Bilirubin Negative (<2.0 mg/dL) 08/21/18 08:50 Urine Urobilinogen Negative mg/dL (0.2-1.0) 08/21/18 08:50 Ur Leukocyte Esterase Negative (NEGATIVE) 08/21/18 08:50 RPR Titer Nonreactive (NONREACTIVE) 08/21/18 08:00 lab noted Assessment: 08/22/18 11:52 withdrawal sx Plan: continue detox
[2018-08-22] MEDS: THIAMINE HCL 100 MG TABLET (FP) PO SCH (22:09)
[2018-08-22] MEDS: chlordiazePOXIDE 5 MG CAPSULE PO SCH (22:09)
[2018-08-22] MEDS: MELATONIN 5 MG TABLETS PO PRN (22:11)
[2018-08-23] MEDS: chlordiazePOXIDE 5 MG CAPSULE PO SCH ×3 (05:22→17:43)
[2018-08-23] MEDS: PRENATAL VITAMINS W/ FOLIC ACID TABLET (FP) PO SCH (10:18)
[2018-08-23] MEDS: NICOTINE 14 MG/24 HOURS TOPICAL PATCH TD SCH (10:18)
[2018-08-23] MEDS: METHADONE HCL 5 MG TABLET (FOR DETOX USE ONLY) PO SCH (10:18)
--- NOTE | 2018-08-23 12:52 | PN ---
[facility] Progress Note (SOAP) Subjective: irritable sweats interrupted sleep Objective: 08/23/18 12:51 Vital Signs Temperature 98.2 F 08/23/18 09:38 Pulse Rate 68 08/23/18 09:38 Respiratory Rate 18 08/23/18 09:38 Blood Pressure 138/81 08/23/18 09:38 O2 Sat by Pulse Oximetry (%) aaox3 ambulating no acute distress Assessment: 08/23/18 12:51 mild withdrawal sx Plan: continue detox increase fluids
[2018-08-23] MEDS: IBUPROFEN 400 MG TABLET (FP) PO PRN (22:21)
[2018-08-23] MEDS: THIAMINE HCL 100 MG TABLET (FP) PO SCH (22:21)
[2018-08-23] MEDS: MELATONIN 5 MG TABLETS PO PRN (22:22)
[2018-08-23] MEDS: chlordiazePOXIDE HCL 10 MG CAPSULE PO SCH (22:22)
[2018-08-24] MEDS: chlordiazePOXIDE HCL 10 MG CAPSULE PO SCH ×3 (06:36→18:00)
[2018-08-24] MEDS ORDERED: METHADONE HCL 10 MG TABLET (FOR DETOX USE ONLY) PO SCH (10:00)
[2018-08-24] MEDS: PRENATAL VITAMINS W/ FOLIC ACID TABLET (FP) PO SCH (10:05)
[2018-08-24] MEDS: NICOTINE 14 MG/24 HOURS TOPICAL PATCH TD SCH (10:05)
--- NOTE | 2018-08-24 11:51 | PN ---
[facility] Progress Note (SOAP) Subjective: excessive dry skin to palms sweats agitation Objective: 08/24/18 11:49 Vital Signs Temperature 97.9 F 08/24/18 09:33 Pulse Rate 76 08/24/18 09:33 Respiratory Rate 18 08/24/18 09:33 Blood Pressure 152/75 08/24/18 09:33 O2 Sat by Pulse Oximetry (%) aaox3 ambulating no acute distress Assessment: 08/24/18 11:49 withdrawal sx fungal rash with dry scaly skin noted to palm of hands toothache Plan: continue detox increase fluids nystatin ointment to excessive dry skin on palm of hands lidocaine s/s d/c in am
[2018-08-24] MEDS: NYSTATIN 100000 UNIT/GM TOPICAL OINTMENT 15 GM TUBE TP SCH ×2 (14:36→22:28)
[2018-08-24] MEDS: MELATONIN 5 MG TABLETS PO PRN (22:28)
[2018-08-24] MEDS: THIAMINE HCL 100 MG TABLET (FP) PO SCH (22:28)
[2018-08-24] MEDS: IBUPROFEN 400 MG TABLET (FP) PO PRN (22:29)
[2018-08-24] MEDS: LIDOCAINE VISCOUS 2% ORAL/TOP 20 ML UNIT-DOSE CUP MM PRN (22:33)
[2018-08-25] MEDS ORDERED: METHADONE HCL 5 MG TABLET (FOR DETOX USE ONLY) PO SCH (06:00)
--- NOTE | 2018-08-25 08:47 | DS ---
[facility] Detox Discharge Summary Admission Date: 08/20/18 Discharge Date: 08/25/18 - History Present History: Alcohol Dependence, Cocaine Dependence, Opioid Dependence - Physical Exam Results Vital Signs: Vital Signs Temperature 98.1 F 08/25/18 07:40 Pulse Rate 64 08/25/18 07:40 Respiratory Rate 18 08/25/18 07:40 Blood Pressure 156/63 08/25/18 07:40 O2 Sat by Pulse Oximetry (%) - Treatment Hospital Course: Detox Protocol Followed, Detoxed Safely, Responded well, Discharged Condition Good, Rehab Referral Accepted - Medication Discharge Medications: Ambulatory Orders NK [No Known Home Medication] 08/20/18 - Diagnosis (1) Alcohol dependence with uncomplicated withdrawal Current Visit: Yes Status: Chronic (2) Nicotine dependence Current Visit: Yes Status: Chronic Qualifiers: Nicotine product type: cigarettes Substance use status: uncomplicated Qualified Code(s): F17.210 - Nicotine dependence, cigarettes, uncomplicated (3) Opioid dependence Current Visit: Yes Status: Chronic Qualifiers: Substance use status: uncomplicated Qualified Code(s): F11.20 - Opioid dependence, uncomplicated (4) Hyperlipidemia Current Visit: Yes Status: Chronic Qualifiers: Hyperlipidemia type: unspecified Qualified Code(s): E78.5 - Hyperlipidemia , unspecified (5) Hypertension Current Visit: Yes Status: Chronic Qualifiers: Hypertension type: essential hypertension Qualified Code(s): I10 - Essential (primary) hypertension (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 (7) Non-compliant patient Current Visit: Yes Status: Chronic (8) Schizoaffective disorder Current Visit: Yes Status: Chronic (9) Alcohol dependence Current Visit: No Status: Acute (10) Cocaine abuse Current Visit: No Status: Acute (11) Cocaine dependence, uncomplicated Current Visit: No Status: Acute (12) Cocaine dependence Current Visit: No Status: Chronic Qualifiers: Substance use status: uncomplicated Qualified Code(s): F14.20 - Cocaine dependence, uncomplicated (13) Opioid dependence on agonist therapy Current Visit: No Status: Chronic (14) Seizure after head injury Current Visit: No Status: Suspected - AMA Did Patient Leave Against Medical Advice: No (referred terrance ryan)
[2018-08-25 09:32] VITALS: BP 109/72; PULSE 88; TEMP 98.2
[2018-08-25] MEDS: IBUPROFEN 400 MG TABLET (FP) PO PRN (09:40)
[2018-08-25] MEDS: LIDOCAINE VISCOUS 2% ORAL/TOP 20 ML UNIT-DOSE CUP MM PRN (09:41)
== END 2018-08-25 10:39 | disposition home or self-care (01) | DRG 773 ==
LOC: YASAS 16:22 → Y6N 19:14
PROC: HZ2ZZZZ Detoxification Services for Substance Abuse Treatment (ICD-10-PCS; principal; 2018-08-20)
DX: F10.230 Alcohol dependence with withdrawal, uncomplicated (principal); F11.20 Opioid dependence, uncomplicated; F14.20 Cocaine dependence, uncomplicated; F17.210 Nicotine dependence, cigarettes, uncomplicated; F25.9 Schizoaffective disorder, unspecified; I10 Essential (primary) hypertension; E78.5 Hyperlipidemia, unspecified; A69.23 Arthritis due to Lyme disease; K08.89 Other specified disorders of teeth and supporting structures; B36.9 Superficial mycosis, unspecified; Z91.14 Patient's other noncompliance with medication regimen; Z86.69 Personal history of other diseases of the nervous system and sense organs
CPT/HCPCS: 36415; 80053; 81003; 85027; 86593; 93005; 93010